=== PATIENT | male | born 1980 | race Caucasian/White ===

== ENCOUNTER 2023-11-08 21:55 | Emergency (ER) | payer OTHER, SELFPAY ==
[2023-11-08] VITALS (18 sets, daily range): BP systolic 126–145; BP diastolic 77–96; PULSE 106–136; TEMP 37.1; O2SAT 96–98; BMI 25.0
--- NOTE | 2023-11-08 22:13 | XR_ITS ---
[address] [address] Patient Name: ELIZABETH PERRY MRN: [id number] date: 1980 Sex: M Assigned Patient Location: ER Current Patient Location: ER Accession/Order Number: [id number] Exam Date: 11/08/2023 22:39 Report Date: 11/08/2023 22:54 At the request of: MARI MARKER Procedure: XR chest 1V EXAM: XR chest 1V HISTORY: CP COMPARISON: None FINDINGS/IMPRESSION: 1. Patchy consolidation of the right lung base, consistent with inflammation/infection. 2. No pneumothorax. No pleural effusion. 3. Heart size and mediastinal contours are normal. 4. No acute osseous abnormality. 5. Upper abdominal bowel gas pattern is nonspecific. Electronically authenticated by: ZUHAIR BENÍTEZ Date: 11/08/2023 22:54
[2023-11-08] MEDS: 0.9 % SODIUM CHLORIDE 1,000 ML 1000 ML IV (22:46)
[2023-11-08] MEDS: KETOROLAC TROMETHAMINE 30 MG/ML VIAL IVP (22:46)
[2023-11-08 22:47] LABS: Basophils Absolute Auto 0.1 10^3/uL (0.0-0.1); Basophils Percent Auto 0.4 % (0.2-2.0); Eosinophils Absolute Auto 0.3 10^3/uL (0.0-0.7); Eosinophils Percent Auto 1.9 % (0.9-7.0); Hematocrit 40.3 % (42.0-54.0); Hemoglobin 13.6 g/dL (14.0-18.0); Immature Granulocytes Abs Auto 0.05 10^3/uL (0.00-0.03); Immature Granulocytes Pct Auto 0.3 % (0.0-0.5); Lymphocytes Absolute Auto 4.5 10^3/uL (1.2-3.8); Lymphocytes Percent Auto 27.6 % (20.5-60.0); Mean Corpuscular HGB Conc 33.7 g/dL (29.9-35.2); Mean Corpuscular Hemoglobin 27.6 pg (25.9-34.0); Mean Corpuscular Volume 81.9 fL (80.0-94.0); Mean Platelet Volume 10.8 fL (9.5-13.5); Monocytes Absolute Auto 1.1 10^3/uL (0.3-0.8); Monocytes Percent Auto 6.5 % (1.7-12.0); Neutrophils Absolute Auto 10.3 10^3/uL (1.4-6.5); Neutrophils Percent Auto 63.3 % (43.0-75.0); Platelet Count 237 10^3/uL (150-450); Red Blood Count 4.92 10^6/uL (4.70-6.10); White Blood Count 16.2 10^3/uL (4.0-11.0)
--- NOTE | 2023-11-08 22:51 | ED.CHESTPAI1 ---
HPI - Chest Pain General Chief Complaint: Chest Pain Stated Complaint: CHEST PAIN Time Seen by Provider: 11/08/23 22:00 Source: patient and EMR Mode of arrival: walk-in Limitations: no limitations History of Present Illness HPI narrative: This 43-year-old male with a history of substance abuse who is currently at [facility] and has been there for the past 2 days is brought to the emergency department from [facility] for evaluation of chest pain/anxiety, questionable seizure. 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 Prior to that he was using other medications and has overdosed multiple times. He states that despite being clean for almost 1 year on October 18 he relapsed on meth and was court ordered to go to [facility]. He has been there for the past 2 days. He denies that he has used any substances since then and earlier today started having palpitations and feeling that his heart was beating fast and he became extremely anxious and thinks he may have passed out. The staff at [facility] thought he could have had a seizure as he was may be jerking at the time of passing out. Additional history was obtained from the [facility] nursing staff. The patient came to the desk earlier tonight stating that he was having increased anxiety. He was then given hydroxyzine and BuSpar. He complained that that did not work for his anxiety and was given additional dose of hydroxyzine at which time he had seizure-like activity and was unresponsive with shaking for approximately 3 minutes. There was then talk amongst themselves about giving him Narcan when he stopped his seizure activity. He did not bite his tongue nor was he incontinent of urine. Related Data Home Medications ?Medication ?Instructions ?Recorded ?Confirmed buprenorphine 4 mg-naloxone 1 mg 1 film sublingual Q24H 11/08/23 11/08/23 sublingual film buspirone 7.5 mg tablet 7.5 mg PO BID 11/08/23 11/08/23 diphenhydramine HCl 25 mg tablet 25 mg PO Q8H 11/08/23 11/08/23 (Banophen) Allergies Allergy/AdvReac Type Severity Reaction Status Date / Time Penicillins Allergy Mild Rash Verified 11/08/23 22:01 Review of Systems ROS Status of ROS 10 or more systems reviewed and unremarkable except as noted in history and below Exam Narrative Exam Narrative: Vital signs and Nursing Notes reviewed: Patient is afebrile, tachycardic with pulse of 117bpm, and blood pressure is elevated 145/86, he is not hypoxic with pulse ox of 98% on room air General: Awake, alert, oriented, anxious, no respiratory distress HEENT: Normocephalic atraumatic, mucous membranes are moist and pink, eyes are clear, normal conjunctiva, vision is grossly intact, posterior pharynx is normal in appearance, dentition is generally poor with multiple decayed and decaying teeth. Neck: Supple, no meningeal signs, no anterior or posterior cervical lymphadenopathy Chest: Lungs are clear to auscultation with good air entry, there is no wheezing rhonchi or rales appreciated no accessory muscle use, patient is speaking in complete sentences-no chest wall tenderness to palpation CVS: Regular rate and rhythm S1-S2, tachycardia at 115 on exam, no murmurs rubs or gallops, pulses are brisk and equal bilaterally ABD: Soft, nondistended, nontender, no rebound guarding or rigidity, bowel sounds are normal, no pulsatile masses appreciated Extremities: Moving all extremities, no lower extremity tenderness or swelling noted, negative Homans' sign, pulses are brisk and equal bilaterally Skin: Normal in appearance without rash,pallor, petechiae or purpura Neuro: No focal deficits, speech is clear, he is moving all extremities, upper and lower extremity strength and sensation is intact Psych: anxious Constitutional Vital Signs, click to edit/add: Last Vital Signs Temp 98.8 F 11/08/23 21:56 Pulse 116 H 11/08/23 23:10 Resp 15 11/08/23 23:29 BP 145/86 H 11/08/23 23:00 Pulse Ox 96 11/08/23 23:21 O2 Del Method Room Air 11/08/23 21:56 Course Vital Signs Vital signs: Vital Signs Temperature 98.8 F 11/08/23 21:56 Pulse Rate 136 H 11/08/23 21:56 Respiratory Rate 20 11/08/23 21:56 Blood Pressure 126/96 H 11/08/23 21:56 Pulse Oximetry 97 11/08/23 21:56 Oxygen Delivery Method Room Air 11/08/23 21:56 Temperature 98.8 F 11/08/23 21:56 Pulse Rate 116 H 11/08/23 23:10 Respiratory Rate 15 11/08/23 23:29 Blood Pressure 145/86 H 11/08/23 23:00 Pulse Oximetry 96 11/08/23 23:21 Oxygen Delivery Method Room Air 11/08/23 21:56 MDM - Chest Pain MDM Narrative Medical decision making narrative: This 43-year-old male with a history of substance abuse and cigarette smoking presents for evaluation of anxiety and chest pain. The patient was transferred from the [facility] recovery unit for evaluation of anxiety, chest pain and questionable syncope versus seizure. According to the staff at [facility] he came to the desk twice asking for something for anxiety and was medicated with hydroxyzine and BuSpar. He then complained of chest pain and either passed out or had a seizure. He does not have a history of seizures. He states his last use of methamphetamine was October 18. Upon arrival he is awake and alert with no postictal symptoms. EKG done upon arrival was sinus tachycardia 125 bpm with a normal axis and no acute changes. He was medicated with IV fluids and Toradol for his chest pain. His tachycardia started to resolve but he remained tachycardic and was medicated with 1 mg of IV Ativan. Routine cardiac labs are ordered. His white count is elevated at 16.2. There are no signs of infection. He has a normal hemoglobin. Electrolytes are normal. Alcohol is less than 3. Drug tox is positive for Suboxone and marijuana. Troponin and D-dimer are both normal. Chest x-ray was reviewed by radiology with concerns for a possible infiltrate. I reviewed the chest x-ray myself and do not think this is consistent with a pneumonia. The patient has not had a fever or cough. On reevaluation he is feeling better, resting comfortably. Vital signs are improved. The time of this dictation is blood pressure is 131/77, pulse ox is 96% on room air and pulse is 105. He states that the Ativan is starting to kick in. 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 He feels comfortable being released at this time. Lab Data Labs: Lab Results 11/08/23 11/08/23 Range/Units 22:37 23:20 WBC 16.2 H (4.0-11.0) 10^3/uL RBC 4.92 (4.70-6.10) 10^6/uL Hgb 13.6 L (14.0-18.0) g/dL Hct 40.3 L (42.0-54.0) % MCV 81.9 (80.0-94.0) fL MCH 27.6 (25.9-34.0) pg MCHC 33.7 (29.9-35.2) g/dL RDW 13.0 (11.0-15.0) % Plt Count 237 (150-450) 10^3/uL MPV 10.8 (9.5-13.5) fL Neut % (Auto) 63.3 (43.0-75.0) % Lymph % (Auto) 27.6 (20.5-60.0) % Sibley % (Auto) 6.5 (1.7-12.0) % Eos % (Auto) 1.9 (0.9-7.0) % Baso % (Auto) 0.4 (0.2-2.0) % Neut # (Auto) 10.3 H (1.4-6.5) 10^3/uL Lymph # (Auto) 4.5 H (1.2-3.8) 10^3/uL S[place]y # (Auto) 1.1 H (0.3-0.8) 10^3/uL Eos # (Auto) 0.3 (0.0-0.7) 10^3/uL Baso # (Auto) 0.1 (0.0-0.1) 10^3/uL Abs Immat Gran (auto) 0.05 H (0.00-0.03) 10^3/uL Imm/Tot Granulo (auto) 0.3 (0.0-0.5) % D-Dimer <0.19 (<=0.59) mg/L FEU Sodium 139 (136-145) mmol/L Potassium 4.1 (3.5-5.1) mmol/L Chloride 106 (98-107) mmol/L Carbon Dioxide 26.3 (21.0-32.0) mmol/L Anion Gap 10.8 BUN 15.0 (7.0-18.0) mg/dL Creatinine 1.11 (0.70-1.30) mg/dL Est GFR ( Amer) >60 (>=60) Est GFR (Non-Af Amer) >60 (>=60) BUN/Creatinine Ratio 13.5 Glucose 107 H (74-106) mg/dL Calcium 8.4 L (8.5-10.1) mg/dL Total Bilirubin 0.2 (0.2-1.0) mg/dL AST 7 L (15-37) U/L ALT 27 (16-63) U/L Alkaline Phosphatase 69 (46-116) U/L Troponin I High Sens 10.4 (4.0-76.1) pg/mL Total Protein 6.8 (6.4-8.2) g/dL Albumin 3.7 (3.4-5.0) g/dL Globulin 3.1 g/dL Albumin/Globulin Ratio 1.2 Urine Opiates Screen Negative (NEGATIVE) Ur Buprenorphine Scrn Positive A (NEGATIVE) Ur Oxycodone Screen Negative (NEGATIVE) Urine Methadone Screen Negative (NEGATIVE) Ur Barbiturates Screen Negative (NEGATIVE) U Tricyclic Antidepress Negative (NEGATIVE) Ur Phencyclidine Scrn Negative (NEGATIVE) Ur Amphetamines Screen Negative (NEGATIVE) U Methamphetamines Scrn Negative (NEGATIVE) U Benzodiazepines Scrn Negative (NEGATIVE) Urine Cocaine Screen Negative (NEGATIVE) U Cannabinoids Screen Positive A (NEGATIVE) Ethanol Quant <3 mg/dL ECG Data Attestation: I personally reviewed and interpreted this ECG as follows: (Sinus tachycardia at 125 bpm, normal axis, no acute ST segment elevation or T wave inversion) Heart Score History: Slightly/Non-Suspicious ECG: Normal Age: <45 years Risk Factors: 1 or 2 Risk Factors Troponin: <Normal Limit Total Heart Score Recommendations & Risks:: 1 Discharge Plan Discharge Stand Alone Forms: Portal Instructions Chief Complaint: Chest Pain Clinical Impression: Atypical chest pain, Anxiety, Panic attack Patient Disposition: Home, Self-Care Time of Disposition Decision: 00:01 Condition: Good Prescriptions / Home Meds: No Action buprenorphine-naloxone 4-1 mg film 1 film sublingual Q24H buspirone 7.5 mg tablet 7.5 mg PO BID diphenhydramine HCl [Banophen] 25 mg tablet 25 mg PO Q8H Print Language: Sami Instructions: Panic Disorder (ED), Noncardiac Chest Pain (ED), Anxiety (ED), Panic Attack (ED) Referrals: Physician,Non-Staff, MD [Primary Care Provider] - 1 week
[2023-11-08 23:02] LABS: Alanine Aminotransferase 27 U/L (16-63); Albumin Globulin Ratio 1.2; Albumin Level 3.7 g/dL (3.4-5.0); Alkaline Phosphatase 69 U/L (46-116); Anion Gap 10.8; Aspartate Amino Transferase 7 U/L (15-37); BUN Creatinine Ratio 13.5; Bilirubin Total 0.2 mg/dL (0.2-1.0); Calcium 8.4 mg/dL (8.5-10.1); Carbon Dioxide 26.3 mmol/L (21.0-32.0); Chloride 106 mmol/L (98-107); D Dimer <0.19 mg/L FEU (<=0.59); Estimated GFR (African America >60 (>=60); Estimated GFR (Non-African Ame >60 (>=60); Globulin 3.1 g/dL; Glucose 107 mg/dL (74-106); Potassium 4.1 mmol/L (3.5-5.1); Sodium 139 mmol/L (136-145); Total Protein 6.8 g/dL (6.4-8.2)
[2023-11-08 23:05] LABS: Troponin I High Sensitivity 10.4 pg/mL (4.0-76.1)
[2023-11-08 23:16] LABS: Ethanol <3 mg/dL
[2023-11-08] MEDS: LORAZEPAM 2 MG/ML VIAL 1 MG IV (23:22)
[2023-11-08 23:48] LABS: Amphetamine Screen Urine NEGATIVE (NEGATIVE); Barbiturates Screen Urine NEGATIVE (NEGATIVE); Benzodiazepines Screen Urine NEGATIVE (NEGATIVE); Buprenorphine Screen Urine POSITIVE (NEGATIVE); Cannabinoid Screen Urine POSITIVE (NEGATIVE); Cocaine Screen Urine NEGATIVE (NEGATIVE); Methadone Screen Urine NEGATIVE (NEGATIVE); Methamphetamines Screen Urine NEGATIVE (NEGATIVE); Opiate Screen Urine NEGATIVE (NEGATIVE); Oxycodone Screen Urine NEGATIVE (NEGATIVE); Phencyclidine Screen Urine NEGATIVE (NEGATIVE); Tricyclic Antidepressant Urine NEGATIVE (NEGATIVE)
[2023-11-09] VITALS: BP 133/87; PULSE 108; O2SAT 99
[2023-11-09 00:20] VITALS: BP 137/77; PULSE 100; O2SAT 99
--- NOTE | 2023-11-09 00:46 | ECG_ITS ---
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
== END 2023-11-09 00:20 | disposition home or self-care (01) ==
PROVIDERS: Emergency Provider Emergency Medicine
DX: R07.89 Other chest pain (principal); F41.9 Anxiety disorder, unspecified; F41.0 Panic disorder [episodic paroxysmal anxiety]; F17.210 Nicotine dependence, cigarettes, uncomplicated
CPT/HCPCS: 36415; 71045; 80053; 80307; 80320; 84484; 85025; 85378; 93005; 96374; 96375; 99285; J1885; J2060

== ENCOUNTER 2025-03-25 11:24 | Emergency (ER) | payer OTHER, SELFPAY ==
--- OUTSIDE RECORDS SUMMARY | 2024-12-25 10:45 | XMS_ITS | Continuity of Care Document ---
Author Organization [facility] Address [address] [place] [address] Phone Care Team Providers Care Occupational Ther Name Role Phone Shadi LOVE, Andrei Unavailable Unavailable Advance Directives Directive Yes / No Effective Date File Name No Information Encounters Encounter Description Practice Location Reason(s) For Visit Diagnoses Date Provider Providers Copied on Encounter [facility], [address], [place], [id number], [place] tel:[phone] [facility] Other specified counseling Shadi Bullard. [address], [place], [id number], [place]. tel:[phone] Family History Family Member Type Diagnosis Age At Onset No Information Payers Payer name Insurance type Covered constitution party ID Authoriza tion(s) No Information Social History [...]
[2025-03-25 11:35] VITALS: BP 125/71; PULSE 76; TEMP 36.7; O2SAT 100; BMI 24.1
--- NOTE | 2025-03-25 11:35 | ECG_ITS ---
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 Measurements Intervals [place] Rate: 67 P: 80 W[place]: 130 QRS: 78 QRSD: 84 T: 60 QT: 406 QTc: 421 Interpretive Statements 1100 Sinus rhythm 9110 normal ECG Compared to ECG 11/08/2023 22:05:33 Sinus tachycardia no longer present Electronically Signed On 03-25-2025 18:05:26 EDT by AXLE SWANN M.D.
--- OUTSIDE RECORDS SUMMARY | 2025-03-25 11:35 | XMS_ITS | Clinical Summary ---
Author Organization [facility] Address [address] [place] [address] Care Team Providers Care Shop Assistant Name Role Phone Unavailable Primary Care Provider Unavailabl e Source Comments PLEASE NOTE, if this patient is a minor, it may be UNLAWFUL to discuss sensitive information that is contained in these records (such as FAMILY PLANNING, MENTAL HEALTH or SUBSTANCE ABUSE) with the minor patient's parent or other person without the patient's specific authorization.[facility] Allergies Active AllergyReactionsCriticalityNoted IwdsAmhbgsztMmhnemrisft99/24/2025 Medications MedicationSigDispense QuantityRefillsLast FilledStart DateEnd DateStatus methadone HCl (METHADONE ORAL) Take by mouth.Active glecaprevir-pibrentasvir (MAVYRET) 100-40 mg tab Indications:Chronic hepatitis C without hepatic comaTake 3 Tablets by mouth daily for 56 days 3 tablets orally daily x 8 weeks Take all 3 tablets at same time, after dinner with glass of water. Call for blood redraw 4 wks after last pill. [phone]. 84 Tablet 5Active Active Problems No known active problems Encounters DateTypeDepartmentCare BcwzXprktckaoiw76/09/2025Interim Notes [facility] [address] [phone] Corie Alves 02/28/2025Results Follow-Up [facility] [address] [place] [address] Augusta Elizabeth CRNP 02/27/2025Interim Notes [facility] Department [address] [place] [phone] Brady Ariza 02/26/2025Telemedicine Visit [facility] [address] [place] [phone] Augusta Elizabeth CRNP 02/20/2025 9:15 PM EDTOffice Visit [facility] [address] [place] [address] Augusta Elizabeth CRNP from Last 3 Months Social History Tobacco UseTypesPacks/DayYears UsedDateSmoking Tobacco: Never AssessedSex and Gender InformationValueDate RecordedSex Assigned at OeyqkZldg53/24/2025 6:08 PM PDTLegal WfrGkkg78/04/2013 10:55 PM PSTGender OubuyeaeNtzw25/24/2025 6:08 PM PDT Sexual QflmiaxqcdvYacwxigk13/24/2025 6:08 PM PDT Last Filed Vital Signs Vital SignReadingTime TakenCommentsBlood Djaxclwn077/77002/20/2025 9:13 PM EDT Mkoja596102/20/2025 9:13 PM DDYHfesiwjdgvl55.4 ??C (97.6 ??F)02/20/2025 9:13 PM EDTRespiratory Uqnx487302/20/2025 9:13 PM EDTOxygen Btmksttcfc72%02/20/2025 9:13 PM EDTInhaled Oxygen Concentration--Asmgog08.5 kg (140 lb)02/20/2025 9:13 PM EDT Lrogga156.1 cm (5' 5 )02/20/2025 9:13 PM EDTBody Mass Index23.309 9:13 PM EDT Plan of Treatment Health MaintenanceDue DateLast DoneCommentsAnxiety Wpfjegpsw1981Diabetes Enmohnhgm1981Lipid Farfprort1981Tobacco Zecphjxzw1981Imm- Pneumococcal (1 of 2 - PCV)2000Imm-HPV (1 - 3-dose SCDM series)2008 Alcohol and Drug Ezfrcg3605/30/2024Depression Annual Physyl9905/30/20244121Vox-IRQKM-78 ( - season)2025Imm-Influenza (#1)2025Hypertension Screening (#1)02/20/2026STI Blqkowveyp39Imm-DTaP/Tdap/Td (2 - Td or Tdap)9007/16/2018HIV MwgnlmakvDdloelqmr62/25/2025Imm-Hepatitis B Discontinued Procedures Procedure NamePriorityDate/TimeAssociated DiagnosisCommentsMEDICATIONS SCANNED DZSZRYPYXdscesj96/01/2025 4:34 PM EDTMEDICATIONS SCANNED DOCUMENTRoutine 02/27/2025 12:37 PM EDTNFCT AGENT GENOTYPE LULU NUCLEIC ACD HEP C VIRUSRoutine 02/21/2025 11:47 AM EDT BLOOD COUNT COMPLETE LCCKJZNBXHwblkyd38/25/2025 11:47 AM EDT Chronic hepatitis C without hepatic coma (CMS & HHS-HCC) Exposure to sexually transmitted disease (STD) Encounter for screening for other viral diseases Screening examination for venereal disease HIV 1/2 AG & AB W/RFLX (4TH GEN)Jviaojt7002/21/2025 11:47 AM EDT Chronic hepatitis C without hepatic coma (CMS & HHS-HCC) Exposure to sexually transmitted disease (STD) Encounter for screening for other viral diseases Screening examination for venereal disease HEP C RNA QT, RT PCR W/RFLX ANKITA WUHFCvnczut42/25/2025 11:47 AM EDT Chronic hepatitis C without hepatic coma (CMS & HHS-HCC) Exposure to sexually transmitted disease (STD) Encounter for screening for other viral diseases Screening examination for venereal disease HEPATIC FUNCTION SLZWQOnzhgof66/25/2025 11:47 AM EDT Chronic hepatitis C without hepatic coma (CMS & HHS-HCC) Exposure to sexually transmitted disease (STD) Encounter for screening for other viral diseases Screening examination for venereal disease PROTHROMBIN QLUVCrnwisf23/25/2025 11:47 AM EDT Chronic hepatitis C without hepatic coma (CMS & HHS-HCC) Exposure to sexually transmitted disease (STD) Encounter for screening for other viral diseases Screening examination for venereal disease HEPATITIS PANEL, GENERAL W/RFLX (QPT ONLY)Vjmvodz6402/21/2025 11:47 AM EDT Chronic hepatitis C without hepatic coma (CMS & HHS-HCC) Exposure to sexually transmitted disease (STD) Encounter for screening for other viral diseases Screening examination for venereal disease BUN/CREATININE CFWKQKqvtkez13/25/2025 11:47 AM EDT Chronic hepatitis C without hepatic coma (CMS & HHS-HCC) Exposure to sexually transmitted disease (STD) Encounter for screening for other viral diseases Screening examination for venereal disease LIVER FIBROSIS, FIBROTEST-ACTITEST PANEL??Jyfewnw1602/21/2025 11:47 AM EDT Chronic hepatitis C without hepatic coma Exposure to sexually transmitted disease (STD) Encounter for screening for other viral diseases Screening examination for venereal disease SYPHILIS ANTIBODY CASCADING OSEOPBFmmshlh21/25/2025 11:47 AM EDT Chronic hepatitis C without hepatic coma ([facility] & HHS-HCC) Exposure to sexually transmitted disease (STD) Encounter for screening for other viral diseases Screening examination for venereal disease HEPATITIS??B VIRUS, DNA, QUANTITATIVE PCR W/RFLX HBV UYYZKFJUCobckll69/25/2025 11:47 AM EDT Chronic hepatitis C without hepatic coma Exposure to sexually transmitted disease (STD) Encounter for screening for other viral diseases Screening examination for venereal disease History of hepatitis B HEPATITIS BE DBKDKArthjsj38/25/2025 11:47 AM EDT Chronic hepatitis C without hepatic coma Exposure to sexually transmitted disease (STD) Encounter for screening for other viral diseases Screening examination for venereal disease History of hepatitis B HEPATITIS D VIRUS (HDV) IGM ANTIBODY, DURUtcbvkd02/25/2025 11:47 AM EDT Chronic hepatitis C without hepatic coma Exposure to sexually transmitted disease (STD) Encounter for screening for other viral diseases Screening examination for venereal disease History of hepatitis B LAB SCANNED JUQTGPEP96/25/2025 3:00 AM EDTLAB SCANNED ETBNGYTK34/25/2025 3:00 AM EDTLAB SCANNED YKBRWCXH31/25/2025 3:00 AM EDTLAB SCANNED KNLHTADL34/25/2025 3:00 AM EDTLAB SCANNED JHZMCCWS38/25/2025 3:00 AM EDTLAB SCANNED JAPLIEXU97/25/2025 3:00 AM EDTLAB SCANNED HIURGVCN13/25/2025 3:00 AM EDTLAB SCANNED DOCUMENT 02/21/2025 3:00 AM EDTLAB SCANNED DRQDVZOE33/25/2025 3:00 AM EDTLAB SCANNED MBGWYJUT88/25/2025 3:00 AM EDTLAB SCANNED HDXGHGPA03/25/2025 3:00 AM EDTLAB SCANNED CBDHTKUD55/25/2025 3:00 AM EDTLAB SCANNED PPFXFVAS14/25/2025 3:00 AM EDT LAB SCANNED IQJNINXS51/25/2025 3:00 AM EDTfrom Last 3 Months Results * MEDICATIONS SCANNED DOCUMENT (02/27/2025 4:34 PM EDT) Only the most recent of2 resultswithin the time period is included. Narrative Authorizing ProviderResult TypeResult StatusProvider OchinSCAN MEDS OTHER ORDERS Final Result * BUN/CREATININE RATIO Routine (02/21/2025 11:47 AM EDT)ComponentValueRef Range Test MethodAnalysis TimePerformed AtPathologist SignatureUREA KRUHDFWW973 - 25 mg/dL02/22/2025 9:22 PM EDTQUEST Stabilitech-UNIVERSALCREATININE0.910.60 - 1.29 mg/dL02/22/2025 9:22 PM EDTHellHouse Media-SUOVRAUKZDIQAZ583> OR = 60 mL/min/1.00g38602/22/2025 9:22 PM EDTHellHouse MediaLECONTE MEDICAL CENTERBUN/CREATININE RATIOSEE NOTE: (calc)02/22/2025 9:22 PM EDTHellHouse MediaLECONTE MEDICAL CENTER Specimen (Source)Anatomical Location / LateralityCollection Method / Volume Collection TimeReceived TimeBloodBlood / Msfjdqw6002/21/2025 11:47 AM EDT 02/22/2025 3:11 PM EDT Narrative [facility] - 02/22/2025 9:22 PM EDT Not Reported: BUN and Creatinine are within ?? reference range. . Authorizing ProviderResult TypeResult StatusAmber Glenn CRNPLAB - BLOOD DRAW Final ResultPerforming OrganizationAddressCity/State/ZIP CodePhone [place] [address], [facility]-[address] [address] * (ABNORMAL) HEPATITIS PANEL, GENERAL W/RFLX (QPT ONLY) Routine (02/21/2025 11:47 AM EDT)ComponentValueRef RangeTest MethodAnalysis TimePerformed At [facility] S AB, QLREACTIVE(A)NON-RQBJFOVA19/27/2025 10:10 AM EDT [facility] MediaBAYQSCOSEZC-ENJPFWAOMYFSPQCBQP-MEKUTZRZEPH-FLKDIXOS96/27/2025 10:59 AM EDTQUEST StabilitechLECONTE MEDICAL CENTERHB CORE AB, TOTALREACTIVE(A)NON-REACTIVE 02/23/2025 10:59 AM EDTQUEST StabilitechLECONTE MEDICAL CENTERHEPATITIS C ANTIBODY REACTIVE(A)NON-LHXMQQXJ47/27/2025 10:59 AM EDTHellHouse MediaLECONTE MEDICAL CENTER HEPATITIS A AB, TOTALREACTIVE(A)NON-OEADXJBU78/27/2025 11:44 AM Content RamenLECONTE MEDICAL CENTERSpecimen (Source)Anatomical Location / Laterality Collection Method / VolumeCollection TimeReceived TimeBloodBlood / Unknown 02/21/2025 11:47 AM EDT02/22/2025 3:11 PM EDT Narrative [facility] - 02/23/2025 11:44 AM EDT . Based on this result, the sample will be tested for HCV RNA by a Nucleic Acid Amplification Test (NAAT) to determine if the patient has a current active infection. . . For additional information, please refer to http://education.Cozy Cloud.Cogenics/faq/PRF675 (This link is being provided for informational/ educational purposes only.) . . For additional information, please refer to http://[employer].Cogenics/faq/HLG309 (This link is being provided for informational/ educational purposes only.) . Authorizing ProviderResult TypeResult StatusAmber Glenn HANKINSLAB - BLOOD DRAW Edited Result - FinalPerforming OrganizationAddressCity/State/ZIP CodePhone Number [facility] [address], [facility] [address] * HEPATITIS??B VIRUS, DNA, QUANTITATIVE PCR W/RFLX HBV GENOTYPE Routine (02/21/2025 11:47 AM EDT)ComponentValueRef RangeTest MethodAnalysis Time Performed AtPathologist SignatureHBV DNANOT DETECTEDIU/mL02/27/2025 2:48 AM EDTQUEST DIAG[facility]ICS/DENISSE SJCHBV DNANOT DETECTEDLog IU/mL02/27/2025 2:48 AM EDTQUEST DIAGNOSTICS/DENISSE SJCSpecimen (Source)Anatomical Location / LateralityCollection Method / VolumeCollection TimeReceived TimeBloodBlood / Pnvypey9302/21/2025 11:47 AM EDT02/22/2025 3:10 PM EDT Narrative [facility] [place] - 02/27/2025 2:57 AM EDT REFERENCE RANGE: NOT DETECTED IU/mL NOT DETECTED LOG IU/mL Authorizing ProviderResult TypeResult StatusAugusta BROWERNPLAB - BLOOD DRAW Final ResultPerforming OrganizationAddressCity/State/ZIP CodePhone Number [facility] [place] [address] [place] [address] [facility] [address] [place] [address] * SYPHILIS ANTIBODY CASCADING REFLEX Routine (02/21/2025 11:47 AM EDT)Component ValueRef RangeTest MethodAnalysis TimePerformed AtPathologist SignatureT. PALLIDUM AB, GMQQDRSKNKSSFZIURTP14/29/2025 4:20 PM EDTQUEST DIAGNOSTICSJamestown [facility] (Source)Anatomical Location / Laterality Collection Method / VolumeCollection TimeReceived TimeBloodBlood / Unknown 02/21/2025 11:47 AM EDT02/22/2025 3:11 PM EDT Narrative [facility] - 02/25/2025 4:27 PM EDT . No antibodies to T. pallidum (the agent causing syphilis) were detected in the specimen. This result, however, does not exclude very recent T. pallidum infection; testing of a second specimen, collected 2-4 weeks after this specimen, is recommended if the index of suspicion for recent infection is high. . Authorizing ProviderResult TypeResult StatusAmbvanesa Elizabeth CRNPLAB - BLOOD DRAW Final ResultPerforming OrganizationAddressCity/State/ZIP CodePhone Number [facility], [address] [address], [facility]-[address] [address] * (ABNORMAL) LIVER FIBROSIS, FIBROTEST-ACTITEST PANEL?? Routine (02/21/2025 11:47 AM EDT)ComponentValueRef RangeTest MethodAnalysis TimePerformed At Pathologist SignatureFIBROSIS SCORE0.231 4:47 PM EDTQUEST DIAGNO[facility]ICS/[place] SJCFIBROSIS STAGEF0-F103/01/2025 4:47 PM EDT[facility]/[place] SJCFIBROSIS INTERPRETATIONSEE NOTE03/01/2025 4:47 PM EDT [facility]/[place] SJCNECROINFLAMMATION ACT SCORE0.101 4:47 PM EDTQUEST [facility]AGNO[facility]/[place] SJCNECROINFLAMMATION ACT JVMSIU113/03/2025 4:47 PM EDTQUEST [facility]/[place] SJCNECROINFLAMMATION INTERPSEE NOTE03/01/2025 4:47 PM EDTQUEST [facility]AG[facility]/[place] PGEIBLQJ-1-DIYOSYPDBYGUN171102 - 279 mg/dL03/01/2025 4:47 PM EDTQUEST [facility]/[place] QUWMNXVTGCEVOD9823 - 212 mg/dL03/01/2025 4:47 PM EDT[facility]/[place] SJCAPOLIPOPROTEIN A1190 (H)94 - 176 mg/dL03/01/2025 4:47 PM EDTQUEST [facility]/[place] SJCTOTAL BILIRUBIN0.50.2 - 1.2 mg/dL03/01/2025 4:47 PM EDTQUEST [facility]/[place] SJC DGU758 - 95 U/L1 4:47 PM EDT[facility]/[place] LOTDOZ062 - 46 U/L1 4:47 PM EDT[facility]/[place] SJCREFERENCE [id number] 03/01/2025 4:47 PM EDTQUEST [facility]AG[facility]/[place] SJCFOOTNOTESEE NOTE03/01/2025 4:47 PM EDTQUEST [facility]AGNO[facility]/[place] SJCSpecimen (Source)Anatomical Location / LateralityCollection Method / VolumeCollection TimeReceived TimeBloodBlood / Dvdgilr2102/21/2025 11:47 AM EDT02/22/2025 12:06 PM EDT Narrative [facility] [place] - 03/01/2025 4:49 PM EDT . no fibrosis . Fibro Test Score (f) ??Metavir Score f>=0 and f<=0.21 : F0 (no fibrosis) f>0.21 and f<=0.27 : F0-F1 (no fibrosis) f>0.27 and f<=0.31 : F1 (minimal fibrosis) f>0.31 and f<=0.48 : F1-F2 (minimal fibrosis) f>0.48 and f<=0.58 : F2 (moderate fibrosis) f>0.58 and f<=0.72 : F3 (advanced fibrosis) f>0.72 and f<=0.74 : F3-F4 (advanced fibrosis) f>0.74 and f<=1.00 : F4 (severe fibrosis) . no activity . ActiTest Score (a) ?Metavir Score a>=0 and a<=0.17 : A0 (no activity) a>0.17 and a<=0.29 : A0-A1 (no activity) a>0.29 and a<=0.36 : A1 (minimal activity) a>0.36 and a<=0.52 : A1-A2 (minimal activity) a>0.52 and a<=0.60 : A2 (significant activity) a>0.60 and a<=0.62 : A2-A3 (significant activity) a>0.62 and a<=1.00 : A3 (severe activity) . The reliability of results is dependent on compliance with the preanalytical and analytical conditions recommended by [employer]. The tests have to be deferred for: acute hemolysis, acute hepatitis, acute inflammation, extra hepatic cholestasis. The advice of a specialist should be sought for interpretation in chronic hemolysis and Gilbert's syndrome. The test interpretation is not validated in liver transplant patients. Isolated extreme values of one of the components should lead to caution in interpreting the results. In case of discordance between a biopsy result and a test, it is recommended to seek the advice of a specialist. The causes of these discordances could be due to a flaw of the test or to a flaw in the biopsy: i.e. a liver biopsy has a 33% variability rate for one fibrosis stage. FibroTest is interpretable for chronic hepatitis B and C, alcoholic and non alcoholic steatosis. ActiTest is interpretable for chronic hepatitis B and C. . The performance characteristics have been determined by [facility]. It has not been cleared or approved by the U.S. Food and Drug Administration. Performance characteristics refer to the analytical performance of the test. . [facility], [employer], the associated logo, [employer] and all associated [employer] mcdaniel are the registered trademarks of [employer]. All third green party mcdaniel - (R) and (TM) - are the property of their respective owners. (C) 2660-1773 [employer]. All rights reserved. . Authorizing ProviderResult TypeResult StatusAmbvanesa Elizabeth Grupo ANPLAB - BLOOD DRAW Final ResultPerforming OrganizationAddressCity/State/ZIP CodePhone Number [facility] [place] [address] [place] [address] [facility] [address] [place] [address] * HIV 1/2 AG & AB W/RFLX (4TH GEN) Routine (02/21/2025 11:47 AM EDT)Component ValueRef RangeTest MethodAnalysis TimePerformed AtPathologist SignatureHIV Screen FinalHIV ZTWNKTJC50/27/2025 10:59 AM EDTHellHouse Media-UNIVERSALHIV AG/AB, 4TH MCIBGP-JZYNSXAETWQ-MTMBYOKZ79/27/2025 10:59 AM Content RamenLECONTE MEDICAL CENTERSpecimen (Source)Anatomical Location / Laterality Collection Method / VolumeCollection TimeReceived TimeBloodBlood / Unknown 02/21/2025 11:47 AM EDT02/22/2025 3:11 PM EDT Narrative [facility] - 02/23/2025 11:00 AM EDT HIV-1 antigen and HIV-1/HIV-2 antibodies were not detected. There is no laboratory evidence of HIV infection. Authorizing ProviderResult TypeResult StatusAmbvanesa CrooksSheridan CRNPLAB - BLOOD DRAW Final ResultPerforming OrganizationAddressCity/State/ZIP CodePhone Number [facility] MediaBR[place] [phone], [facility] [address] * HEPATITIS BE PANEL Routine (02/21/2025 11:47 AM EDT)ComponentValueRef Range Test MethodAnalysis TimePerformed AtPathologist SignatureHEPATITIS BE ANTIBODY Srzqoyxyebg89/29/2025 10:16 AM EDTQUEST [facility]AG[facility]/[place] MAGALIYHEPATITIS BE MXVIKBDVbbxcxngttx12/14/2025 8:03 AM EDT[facility]/[place] Specimen (Source)Anatomical Location / LateralityCollection Method / Volume Collection TimeReceived TimeBloodBlood / Mkktjtg5302/21/2025 11:47 AM EDT 02/22/2025 3:11 PM EDT Narrative [facility] - 03/12/2025 8:05 AM EDT . . Reference range: ??Nonreactive . . For additional information, please refer to https://[employer].Centice/faq/XIB926 . (This link is being provided for informational/ educational purposes only.) . . . Reference range: ??Nonreactive . . For additional information, please refer to https://[employer].Centice/faq/AST199 . (This link is being provided for informational/ educational purposes only.) . Authorizing ProviderResult TypeResult StatusAmber Glenn CRNPLAB - BLOOD DRAW Edited Result - FinalPerforming OrganizationAddressCity/State/[place] [id number] [place], [place] , [facility]/CorkCRM [facility]ITALChipS[facility] [address] [place], [place] * HEPATITIS D VIRUS (HDV) IGM ANTIBODY, EIA Routine (02/21/2025 11:47 AM EDT) ComponentValueRef RangeTest MethodAnalysis TimePerformed AtPathologist SignatureHEPATITIS D VIRUS (HDV) IGM ANTIBODY, WSDZXVJCPND94/01/2025 9:33 PM EDTQUEST DIAGNOSTICS/[place] SJCSpecimen (Source)Anatomical Location / LateralityCollection Method / VolumeCollection TimeReceived TimeBloodBlood / Onrmfky5102/21/2025 11:47 AM EDT02/22/2025 3:11 PM EDT Narrative [facility] [place] - 02/27/2025 9:34 PM EDT REFERENCE RANGE: NEGATIVE . HDV infection occurs only in association with HBV infection. Detection of HDV IgM suggests either recent/acute infection or chronic infection with IgM persistence. HDV RNA PCR testing can also be considered as an aid in the diagnosis and staging of infection. . This test was developed and its analytical performance characteristics have been determined by [employer]. It has not been cleared or approved by FDA. This assay has been validated pursuant to the CLIA regulations and is used for clinical purposes. . Authorizing ProviderResult TypeResult StatusAmb Glenn CRNPLAB - BLOOD DRAW Final ResultPerforming OrganizationAddressCity/State/ZIP CodePhone Number [facility] [place] [address] [place] [address] [facility] [address] [place] [address] * (ABNORMAL) HEP C RNA QT, RT PCR W/RFLX ANKITA LIPA Routine (02/21/2025 11:47 AM EDT)ComponentValueRef RangeTest MethodAnalysis TimePerformed AtPathologist SignatureHCV RNA, QN, PCR1,020,000(H)NOT DETECTED IU/mL02/24/2025 2:14 AM EDT [facility] MediaKimUNIVERSALHCV RNA, QN, PCR6.01(H)NOT DETECTED Log IU/mL 02/24/2025 2:14 AM EDTHellHouse MediaLECONTE MEDICAL CENTERSpecimen (Source)Anatomical Location / LateralityCollection Method / VolumeCollection TimeReceived Time BloodBlood / Exoffut3402/21/2025 11:47 AM EDT02/22/2025 3:09 PM EDT Sanket [facility] UNIVERSAL - 02/24/2025 2:17 AM EDT For additional information, please refer to http://education.Cozy Cloud.Cogenics/faq/CFG97d7 (This link is being provided for informational/ Educational purposes only.) Authorizing ProviderResult TypeResult StatusAmbDameron HospitalGlenn CRNPLAB - BLOOD DRAW Final ResultPerforming OrganizationAddressCity/State/ZIP CodePhone Number [facility], [address] [address], [facility] [address] * NFCT AGENT GENOTYPE LULU NUCLEIC ACD HEP C VIRUS Routine (02/21/2025 11:47 AM EDT)ComponentValueRef RangeTest MethodAnalysis TimePerformed AtPathologist SignatureHCV RNA GENOTYPE, OAUX2mVxb Pleljlsp43/02/2025 2:43 PM EDTHellHouse Media/CorkCRM [facility] MED[facility] CENTERpecimen (Source)Anatomical Location / Laterality Collection Method / VolumeCollection TimeReceived Time02/21/2025 11:47 AM EDT 02/26/2025 3:59 AM EDT Narrative [facility] [place] - 02/28/2025 2:44 PM EDT . The methods used in this test are RT-PCR and DNA Sequencing of the 5' UTR and core region of the HCV genome. . For additional information, please refer to http://education.G-volution/faq/HCVGenotyping . (This link is being provided for informational/ educational purposes only.) . This test was developed and its analytical performance characteristics have been determined by [employer]. It has not been cleared or approved by the FDA. The assay has been validated pursuant to the CLIA regulations and is used for clinical purposes. . Authorizing ProviderResult TypeResult StatusAmber Glenn CRNPLAB - BLOOD DRAW Final ResultPerforming OrganizationAddressCity/State/ZIP CodePhone Number [facility] [place] [address] [place], [place] , [facility]/CorkCRM [place] [address] [place], [place] * PROTHROMBIN TIME Routine (02/21/2025 11:47 AM EDT)ComponentValueRef RangeTest MethodAnalysis TimePerformed AtPathologist SignatureINR1. 5:24 PM EDTQUEST DIAGNOSTICSLECONTE MEDICAL CENTERPROTHROMBIN TIME10.69.0 - 11.5 sec02/22/2025 5:24 PM EDTQUEST DIAGNOSTICSLECONTE MEDICAL CENTERSpecimen (Source)Anatomical Location / LateralityCollection Method / VolumeCollection TimeReceived TimeBloodBlood / Dnaultd3902/21/2025 11:47 AM EDT09/ 3:11 PM EDT Narrative [facility] - 02/22/2025 5:25 PM EDT Reference Range 0.9-1.1 Moderate-intensity Warfarin Therapy 2.0-3.0 Higher-intensity Warfarin Therapy ?? 3.0-4.0 . For additional information, please refer to http://[employer].Centice/faq/WER320 (This link is being provided for informational/ educational purposes only.) Authorizing ProviderResult TypeResult StatusAmber Glenn BROWERNPLAB - BLOOD DRAW Final ResultPerforming OrganizationAddressCity/State/ZIP CodePhone Number [facility], [address] [address], [facility]NOSTICSTIFFANY [place] [address] * BLOOD COUNT COMPLETE AUTOMATED Routine (02/21/2025 11:47 AM EDT)ComponentValue Ref RangeTest MethodAnalysis TimePerformed AtPathologist SignatureWBC8.13.8 - 10.8 Thousand/uL02/22/2025 4:08 PM EDTQUEST DIAGNOSTICS-UNIVERSALRBC5.274.20 - 5.80 Million/uL02/22/2025 4:08 PM EDTQUEST DIAGNOSTICSLECONTE MEDICAL CENTERHEMOGLOBIN 15.213.2 - 17.1 g/dL02/22/2025 4:08 PM EDTQUEST DIAGNOSTICSLECONTE MEDICAL CENTER DCCVLJRQIA03.438.5 - 50.0 %02/22/2025 4:08 PM EDTQUEST DIAGNOSTICSLECONTE MEDICAL CENTER MCV88.080.0 - 100.0 fL02/22/2025 4:08 PM EDTQUEST DIAGNOSTICSLECONTE MEDICAL CENTERMCH 28.827.0 - 33.0 pg02/22/2025 4:08 PM EDTQUEST DIAGNOSTICSLECONTE MEDICAL CENTERNHOFLDPLUGDIPP17.8 32.0 - 36.0 g/dL02/22/2025 4:08 PM EDTQUEST DIAGNOSTICSLECONTE MEDICAL CENTERGJMDLUVJQIDPU26.511.0 - 15.0 %02/22/2025 4:08 PM EDTQUEST DIAGNOSTICS-UNIVERSALPLATELET YNYQL470610 - 400 Thousand/uL02/22/2025 4:08 PM EDTQUEST [facility]AGNO[facility]ICS-HVKDORCOWGARW29.47.5 - 12.5 fL02/22/2025 4:08 PM EDTQUEST DIAGNOSTICS-UNIVERSALSpecimen (Source) Anatomical Location / LateralityCollection Method / VolumeCollection Time Received TimeBloodBlood / Vihkcpj2502/21/2025 11:47 AM EDT02/22/2025 3:11 PM EDT Narrative [facility] - 02/22/2025 4:09 PM EDT For adults, a slight decrease in the calculated MCHC value (in the range of 30 to 32 g/dL) is most likely not clinically significant; however, it should be interpreted with caution in correlation with other red cell parameters and the patient's clinical condition. Authorizing ProviderResult TypeResult StatusAmber Glenn CRNPLAB - BLOOD DRAW Final ResultPerforming OrganizationAddressCity/State/ZIP CodePhone Number [facility] [address], [facility] [address] * HEPATIC FUNCTION PANEL Routine (02/21/2025 11:47 AM EDT)ComponentValueRef RangeTest MethodAnalysis TimePerformed AtPathologist SignaturePROTEIN, TOTAL 7.56.1 - 8.1 g/dL02/22/2025 9:22 PM EDTViximo DIAGNOSTICS-UNIVERSALALBUMIN4.6 3.6 - 5.1 g/dL02/22/2025 9:22 PM EDTViximo DIAGNOSTICS-UNIVERSALGLOBULIN, CALCULATED2.91.9 - 3.7 g/dL (calc)02/22/2025 9:22 PM EDTViximo DIAGNOSTICS-UNIVERSALA/G RATIO1.61.0 - 2.5 (calc)02/22/2025 9:22 PM EDTViximo DIAGNOSTICS-UNIVERSALBILIRUBIN, TOTAL0.50.2 - 1.2 mg/dL02/22/2025 9:22 PM EDT [facility]-UNIVERSALBILIRUBIN, DIRECT0.10.0 - 0.2 mg/dL02/22/2025 9:22 PM EDTQUEST DIAGNOSTICS-UNIVERSALBILIRUBIN, INDIRECT0.40.2 - 1.2 mg/dL (calc) 02/22/2025 9:22 PM EDTQUEST DIAGNOSTICS-UNIVERSALALKALINE KJZOPPMWTXC0792 - 130 U/L02/22/2025 9:22 PM EDTV[facility]imo [facility]-IEOIWZPIKLYVL8634 - 40 U/L 02/22/2025 9:22 PM EDTQUEST DIAGNOSTICS-UEDBEPUXZJKKR430 - 46 U/L02/22/2025 9:22 PM EDTQUEST DIAGNOSTICS-UNIVERSALSpecimen (Source)Anatomical Location / LateralityCollection Method / VolumeCollection TimeReceived TimeBloodBlood / Mimyupv7402/21/2025 11:47 AM EDT02/22/2025 3:11 PM EDT Narrative Authorizing ProviderResult TypeResult StatusAmbvanesa Elizabeth CRNPLAB - BLOOD DRAW Final ResultPerforming OrganizationAddressCity/State/ZIP CodePhone Number [facility], [address] [phone], [facility] [phone] * LAB SCANNED DOCUMENT (02/21/2025 3:00 AM EDT) Only the most recent of14 resultswithin the time period is included. Specimen (Source)Anatomical Location / LateralityCollection Method / Volume Collection TimeReceived Time02/21/2025 3:00 AM EDT Narrative Authorizing ProviderResult TypeResult StatusAmber Glenn CRNPSCAN LABFinal Result from Last 3 Months Insurance
--- OUTSIDE RECORDS SUMMARY | 2025-03-25 11:35 | XMS_ITS | Clinical Summary ---
[facility] Address [id number] 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 14 capsule 12/04/2020ctive Social History Tobacco UseTypesPacks/DayYears UsedDateSmoking Tobacco: Every DayCigarettes Smokeless Tobacco: NeverChildcareAnswerDate OcaiqcnxOtrwejeafUklidef81/12/2019 EmploymentAnswerDate QistxmszAdzwtwumetFdyrhoo03/12/2019Sex and Gender InformationValueDate RecordedSex Assigned at BirthNot on fileLegal SexMale 08/09/2015 11:33 PM ESTGender IdentityNot on fileSexual OrientationNot on file Last Filed Vital Signs Vital SignReadingTime TakenCommentsBlood Eerkbuqs065/8312/04/2020 9:23 PM EDT Aavib663412/04/2020 9:40 PM QKGAxifztjxtsz07.4 ??C (99.3 ??F)12/04/2020 8:55 PM EDTRespiratory Vxqo540012/04/2020 9:40 PM EDTOxygen Uuoftifunt75%12/04/2020 9:40 PM EDTInhaled Oxygen Concentration--Zteogz19 kg (130 lb)12/04/2020 8:55 PM EDT Pnsbmg362.6 cm (5' 4 )12/04/2020 8:55 PM EDTBody Mass Index22.31012/04/2020 8:55 PM EDT Plan of Treatment Not on file Medical Devices Not on file Insurance Care Teams Team MemberRelationshipSpecialtyStart DateEnd Date No P[place] [id number] [facility]
[2025-03-25 11:43] VITALS: PULSE 76
--- NOTE | 2025-03-25 11:45 | ED.GENADUL1 ---
HPI HPI - General Adult General Chief complaint: Chest Pain Stated complaint: CHEST PAIN SOB Time Seen by Provider: 03/25/25 11:39 Source: patient Mode of arrival: walk-in History of Present Illness HPI narrative: 43-year-old male presenting to the ER with cough as well as right ear pain and congestion for the last 1 week. He is a smoker 1 pack of cigarette daily and also have a history hepatitis C Patient denies any chest pain is only whenever he is coughing or taking a deep breath. No nausea no vomiting no diarrhea. The patient also has been complaining of runny nose as well as right ear pain for the last few days Related Data Home Medications ?Medication ?Instructions ?Recorded ?Confirmed glecaprevir 100 mg-pibrentasvir 40 tab PO TID 03/25/25 mg tablet (Mavyret) methadone 03/25/25 Previous Rx's ?Medication ?Instructions ?Recorded azithromycin 250 mg tablet See Rx Instructions PO .COMPLEX #6 03/25/25 (Zithromax Z-Jaquan) tabs guaifenesin 600 mg tablet, 600 mg PO BID PRN cough #14 tabs 03/25/25 extended release 12 hr (Mucinex) prednisone 20 mg tablet 40 mg (2 x 20 mg) PO DAILY 5 days 03/25/25 #10 tabs Allergies Allergy/AdvReac Type Severity Reaction Status Date / Time Penicillins Allergy Mild Rash Verified 03/25/25 11:32 Opioid HPI Opioid Management Most Recent Opioid Data: Last Pain Scale 5 Today, 11:35 Ur Phencyclidine Scrn, (NEGATIVE) Negative 11/08/23, 23:20 Review of Systems ROS Status of ROS 10 or more systems reviewed and unremarkable except as noted in history and below PFSH PFSH Social History Little interest or pleasure in doing things: not at all Feeling down, depressed, or hopeless: not at all Exam Narrative Exam Narrative: Nurses notes and vital signs reviewed and patient is not hypoxic. General: Well-appearing and in no apparent distress. Skin: Warm, dry, no pallor noted. No rash. Head: Normocephalic, atraumatic. Neck: Supple, non-tender. Eye: Pupils are equal, round and EOMI. No scleral icterus. Ears, Nose, Mouth, and Throat: The patient have congestion and bulging of the right ear tympanic membrane with serous fluid behind it mild erythema left ear examination was benign and there is no tonsillar erythema or swelling and no compromise of the airway or deviation of the uvula Cardiovascular: Regular Rate and Rhythm without murmur, gallop or rub. Respiratory: No accessory muscle use or respiratory distress. Lungs are clear to auscultation, no wheezing, rales or rhonchi Chest Wall: no tenderness GI: Abdomen is soft, non-distended. Normal bowel sounds. No masses appreciated. No tenderness to palpation. No rebound, guarding, or rigidity noted. Neurological: A&O x4. No cranial nerve dysfunction observed. Constitutional Vital Signs, click to edit/add: Last Vital Signs Temp 98.0 F 03/25/25 11:35 Pulse 76 03/25/25 11:35 Resp 18 03/25/25 11:35 BP 125/71 03/25/25 11:35 Pulse Ox 100 03/25/25 11:35 O2 Del Method Room Air 03/25/25 11:35 Course Vital Signs Vital signs: Vital Signs Temperature 98.0 F 03/25/25 11:35 Pulse Rate 76 03/25/25 11:35 Respiratory Rate 18 03/25/25 11:35 Blood Pressure 125/71 03/25/25 11:35 Pulse Oximetry 100 03/25/25 11:35 Oxygen Delivery Method Room Air 03/25/25 11:35 Temperature 98.0 F 03/25/25 11:35 Pulse Rate 76 03/25/25 11:35 Respiratory Rate 18 03/25/25 11:35 Blood Pressure 125/71 03/25/25 11:35 Pulse Oximetry 100 03/25/25 11:35 Oxygen Delivery Method Room Air 03/25/25 11:35 Medical Decision Making [facility] Narrative Medical decision making narrative: Patient presenting to us with a 1 week history of right ear pain that is mostly second otitis media as per my evaluation He is also a smoker and right now his presenting to us with bronchitis Patient will be covered with a Z-Jaquan for otitis media and also prednisone for the bronchitis Patient also provided with Mucinex The patient to follow-up with the primary care within 2 to 3 days and to come back to the ER in case of any worsening of the current symptoms or any new symptoms or concerns Discharge Plan Discharge Chief Complaint: Chest Pain Clinical Impression: Otitis media, Bronchitis Patient Disposition: Home, Self-Care Time of Disposition Decision: 11:46 Condition: Good Prescriptions / Home Meds: New azithromycin [Zithromax Z-Jaquan] 250 mg tablet See Rx Instructions .ROUTE .COMPLEX Qty: 6 0RF Rx Instructions: For 250 mg dose pack: take 500 mg today (day 1), then 250 mg for 4 days (days 2-5) prednisone 20 mg tablet 40 mg PO DAILY 5 Days Qty: 10 0RF guaifenesin [Mucinex] 600 mg tablet extended release 12hr 600 mg PO BID PRN (Reason: cough) Qty: 14 0RF No Action methadone 135 mg liquid Mavyret 100-40 mg tablet PO TID Print Language: Maori Instructions: Ear Infection (ED), Acute Bronchitis (ED) Referrals: Physician,Non-Staff, MD [Primary Care Provider] - 1 week Discharge Date/Time: 03/25/25 12:10
--- NOTE | 2025-03-25 11:50 | PC.NURSE ---
pt presence for cough x1 weak with associated chest pain pt rates pain a 5/10 denies cardiac hx pt denies taking any over the counter Meds prior to arrival
== END 2025-03-25 12:10 | disposition home or self-care (01) ==
PROVIDERS: Emergency Provider Emergency Medicine
DX: J40 Bronchitis, not specified as acute or chronic (principal); H66.91 Otitis media, unspecified, right ear; F17.210 Nicotine dependence, cigarettes, uncomplicated; B19.20 Unspecified viral hepatitis C without hepatic coma
CPT/HCPCS: 93005; 99283

== ENCOUNTER 2025-03-26 18:31 | Emergency (ER) | payer OTHER, SELFPAY ==
--- OUTSIDE RECORDS SUMMARY | 2024-12-25 10:45 | XMS_ITS | Continuity of Care Document ---
Author Organization [facility] Address [address] [place] [address] Phone Care Team Providers Care Cadd Technician Name Role Phone Shadi LOVE, Andrei Unavailable Unavailable Advance Directives Directive Yes / No Effective Date File Name No Information Encounters Encounter Description Practice Location Reason(s) For Visit Diagnoses Date Provider Providers Copied on Encounter [facility], [address], [place], [id number], [place] tel:[phone] [facility] Other specified counseling Shadi Bullard. [address], [place], [id number], [place]. tel:[phone] Family History Family Member Type Diagnosis Age At Onset No Information Payers Payer name Insurance type Covered republican ID Authoriza tion(s) No Information Social History Type Description Quantity Date Captured Comments Alcohol Use Details Unknown Caffeine Use Details Unknown Tobacco Use Status No Information Smoking Status No Information Sex Male Sexual Orientation Straight or heterosexual Gender Identity Male Chief Complaint And Reason For Visit No Information Reason For Referral Reason For Referral No Information Plan Of Treatment Date Type Action Status Goal Unhealthy drug use screening . Due on due Goal Tdap Vaccine. Due on 2024 due Goal Lipid panel. Due on 025 due Goal Hep A. Due on du e Goal Depression screening. Due on due Goal RLP. Due on due Goal Tdap. Due on due Goal Influenza vaccine. Due on due Goal Hepatitis C screening. Due o n due Goal PRAPARE ASSESSMENT. Due on due History Of Present Illness Encounter Date Complaint History Of Prese nt Illness No Information Functional Status Date Functional Assessmen t No Information Instructions Date Instruction Additional Infor mation No Information Assessments Type Assessment Date assessment Other specified counseling Patient Care Teams Name Effective Dates (start - stop) Status Members No Information
--- OUTSIDE RECORDS SUMMARY | 2025-03-26 18:38 | XMS_ITS | CCD ---
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 Glucose of more than 200 mg/dL in a nonstressed, ambulatory subject supports the diagnosis of Diabetes Mellitus. ADA recommended reference rangePerformed By: #### ETOH, PRL, CBC, CMP #### [facility] [address] [place] [address] USAPotassium [Moles/Vol]4.5 mmol/LNormal3.5-5.1FHenry County HospitalComment on above:Performed By: #### ETOH, PRL, CBC, CMP #### [facility] [address] [place] [address] USAProtein [Mass/Vol]7.3 g/dLNormal6.1-7.9Children'S Hospital Of ColumbusComment on above:Performed By: #### ETOH, PRL, CBC, CMP #### [facility] [address] [place] [address] USASodium [Moles/Vol]136 mmol/IKzjfpe592-872IfaouhrmiChildren'S Hospital Of ColumbusComment on above:Performed By: #### ETOH, PRL, CBC, CMP #### [facility] [address] [place] [address] USAUrea nitrogen [Mass/Vol]14 mg/dLNormal9-Children'S Hospital Of ColumbusComment on above:Performed By: #### ETOH, PRL, CBC, CMP #### [facility] [address] [place] [address] USADipstick and Microscopicon 09-88-7120Nubixehthr (U)Clear NormalCleSelect Medical Specialty Hospital - Columbus SouthComment on above:Order Comment: Name Collection Type:: Clean-Voided MidstreamPerformed By: #### URDS, ADDONUAPLUS #### [facility] [address] [place] [address] USABacteria,UrineNone SeenNormalNone SeenChildren'S Hospital Of ColumbusComment on above:Order Comment: Name Collection Type:: Clean- Voided MidstreamPerformed By: #### URDS, ADDONUAPLUS #### [place] [address] USABilirubin,UrineNegativeNormalNegativeChildren'S Hospital Of ColumbusComment on above:Order Comment: Name Collection Type:: Clean- Voided MidstreamPerformed By: #### URDS, ADDONUAPLUS #### [facility] [address] [place] [address] USAColor (U)Dark YellowCritically abnormalYellowChildren'S Hospital Of ColumbusComment on above:Order Comment: Name Collection Type:: Clean-Voided MidstreamPerformed By: #### URDS, ADDONUAPLUS #### [place] [address] USAGlucose Ql (U)NormalNormalNormSelect Medical Specialty Hospital - ColumbusComment on above:Order Comment: Name Collection Type:: Clean-Voided MidstreamPerformed By: #### URDS, ADDONUAPLUS #### [place] [address] USAHyaline Casts,Gexpk8-8Xyyhdm3-3VjbzwdhewChildren'S Hospital Of ColumbusComment on above:Order Comment: Name Collection Type:: Clean-Voided MidstreamResult Comment: PERFORMED BY: [place] [address] PATHOLOGIST HOMEOPATHIC DOCTOR SHARA HORAN M.D.Performed By: #### URDS, ADDONUAPLUS #### [place] [address] USAKetones Ql (U)2+HighNegativeChildren'S Hospital Of ColumbusComment on above:Order Comment: Name Collection Type:: Clean-Voided MidstreamPerformed By: #### URDS, ADDONUAPLUS #### [place] [address] USALeukocyte esterase Test strip Ql (U)1+HighNegative Children'S Hospital Of ColumbusComment on above:Order Comment: Name Collection Type:: Clean-Voided MidstreamPerformed By: #### URDS, ADDONUAPLUS #### [place] [address] USANitrite,UrineNegativeNormnmNegJ.W. Ruby Memorial HospitalComment on above:Order Comment: Name Collection Type:: Clean- Voided MidstreamPerformed By: #### URDS, ADDONUAPLUS #### [place] [address] USAOccult Blood,UrineNegativeNormalNegJ.W. Ruby Memorial HospitalComment on above:Order Comment: Name Collection Type:: Clean- Voided MidstreamResult Comment: PERFORMED BY: [place] [address] PATHOLOGIST HOMEOPATHIC DOCTOR SHARA HORAN M.D.Performed By: #### URDS, ADDONUAPLUS #### [place] [address] USApH (U)7.5 [pH]Normal5.0-9.0Children'S Hospital Of ColumbusComment on above:Order Comment: Name Collection Type:: Clean-Voided MidstreamPerformed By: #### URDS, ADDONUAPLUS #### [facility] [address] [place] [address] USAProtein (U) [Mass/Vol]30 mg/dLHighNegativeChildren'S Hospital Of ColumbusComment on above:Order Comment: Name Collection Type:: Clean-Voided MidstreamPerformed By: #### URDS, ADDONUAPLUS #### [place] [address] USARBC,Cemae9-9Dchfuc2-1NhzakiwtwHenry County Hospital Comment on above:Order Comment: Name Collection Type:: Clean-Voided Midstream Performed By: #### URDS, ADDONUAPLUS #### [place] [address] USASpecificy [place],Urine1.748Gsewkl7.001-1.030Children'S Hospital Of ColumbusComment on above:Order Comment: Name Collection Type:: Clean-Voided MidstreamPerformed By: #### URDS, ADDONUAPLUS #### [facility] [address] [place] [address] USASquamous Epithelial Cell,Vlics4-8Bgfbuu1-6AekyznlpnHenry County HospitalComment on above:Order Comment: Name Collection Type:: Clean-Voided MidstreamPerformed By: #### URDS, ADDONUAPLUS #### [facility] [address] [place] [address] USAUrobilinogen,UrineNormalNormalNormalChildren'S Hospital Of ColumbusComment on above:Order Comment: Name Collection Type:: Clean- Voided MidstreamPerformed By: #### URDS, ADDONUAPLUS #### [place] [address] USAWBC,Mzcdi3-8Ejvnbd4-7CfkqxowuoHenry County Hospital Comment on above:Order Comment: Name Collection Type:: Clean-Voided Midstream Performed By: #### URDS, ADDONUAPLUS #### [place] [address] USADrug Screen,Urineon 87-67-2865Koewwqbwhyn Screen,Urine PositiveHighNegJ.W. Ruby Memorial HospitalComment on above:Performed By: #### UMM, ADDONUAPLUS #### [place] [address] USABarbiturate Screen,UrineNegativeNormalNegativeChildren'S Hospital Of ColumbusComment on above:Performed By: #### URVINH, ADDONUAPLUS #### [place] [address] USABenzodiazepines Screen,UrinePositiveHighNegJ.W. Ruby Memorial HospitalComment on above:Performed By: #### UMM, ADDONUAPLUS #### [place] [address] USACannabinoid Screen,UrinePositiveHighland HospitalNegJ.W. Ruby Memorial HospitalComment on above:Result Comment: These are unconfirmed results and should not be used for legal purposes. Drug Cut-Off Concentration: AMPH 1000 ng/mL CONNOR 200 ng/mL JACQUELINE 200 ng/mL COCM 300 ng/mL OP 300 ng/mL PCP 25 ng/mL THC 20 ng/mL PERFORMED BY: [place] [address] PATHOLOGIST HOMEOPATHIC DOCTOR SHARA HORAN M.D.Performed By: #### UMM, ADDONUAPLUS #### [place] [address] USACocaine Screen,UrineNegativeNormalNegJ.W. Ruby Memorial HospitalComment on above:Performed By: #### URVINH, ADDONUAPLUS #### [place] [address] USAOpiate Screen,UrineNegativeNormalNegativeChildren'S Hospital Of ColumbusComment on above:Performed By: #### URVINH, ADDONUAPLUS #### [place] [address] USAPhencyclidine Screen,UrineNegativeNormalNegativeChildren'S Hospital Of ColumbusComment on above:Performed By: #### URVINH, ADDONUAPLUS #### [facility] [address] [place], [place] [address] USAECG 12 lead ECGon [id number] 12 lead ECGNORWALK MEMORIAL [facility] [place] [address] [place] [address] Electrocardiograph Report Signed Patient: Dalton Delgado MR#: [id number] : 1980 Acct:[id number] Age/Sex: 40 / M ADM Date: 12/06/20 Loc: ER Room: Type: [facility] ER Attending Dr: Ordering Provider: James Bacon DO Date of Service: 12/06/20 ECG/ECG 12 lead ECG: Seizure Copies to: Test Reason : Blood Pressure : 116/066 mmHG Vent. Rate : 109 BPM Atrial Rate : 109 BPM P-R Int : 132 ms QRS Dur : 082 ms QT Int : 332 ms P-R-T Axes : 086 077 075 degrees QTc Int : 447 ms Sinus tachycardia Otherwise normal ECG When compared with ECG of 13-SEP-2019 20:27, No significant change was found Confirmed by JAMES BACON DO ([id number]) on 12/07/2020 2:45:49 PM Referred By: Electronically Signed By:JAMES BACON DO Transcribed By: MUS Dictated By: James Bacon DO 12/06/20 1154 Signed By: 12/07/20 1445Pro[facility] Fostoria Community HospitalEthyl Alcohol Profileon 65-88-9269Jrbnpfa [Mass/Vol]mg/dLNoBlanchard Valley Health System Bl[facility] Valley HospitalComment on above:Performed By: #### ETOH, PRL, CBC, CMP #### [facility] [address] [place] [address] USAPercent EthanolNot performedProMedica Fostoria Community HospitalComment on above:Result Comment: PERFORMED BY: [place] [address] PATHOLOGIST HOMEOPATHIC DOCTOR SHARA HORAN M.D.Performed By: #### ETOH, PRL, CBC, CMP #### [facility] [address] [place] [address] USAProlactinon 43-81-6018Nalozvcai1.14 ng/mLNormal2.64-13.13 [facility]'S Hospital Of ColumbusComment on above:Result Comment: PERFORMED BY: [place] [address] PATHOLOGIST HOMEOPATHIC DOCTOR SHARA HORAN M.D.Performed By: #### ETOH, PRL, CBC, CMP #### [facility] [address] [place] [address] USACBC with Diffon [id number]. Basophil0.05 k/uLNormal 0.00-0.20Kn[facility] Community HospitalComment on above:Performed By: #### CDP, PT, PTT, BMP, GGT, LIVP, PHEP, TREP, HIVCMB #### [facility] [employer] [address] [place] [address] Abs.Imm.Granulocyte0.03 k/uLNormal0.00-0.30MerSharp Coronado HospitalComment on above:Performed By: #### CDP, PT, PTT, BMP, GGT, LIVP, PHEP, TREP, HIVCMB #### [facility] [address] [place] [address] Abs.Neutrophil (Seg)4.25 k/uLNormal1.50-8.10[facility] HospitalComment on above:Performed By: #### CDP, PT, PTT, BMP, GGT, LIVP, PHEP, TREP, HIVCMB #### [facility] [employer] [address] [place] [address] Basophils/100 WBC (Bld)1 %Normal0-2MGlendale Research Hospital Comment on above:Performed By: #### CDP, PT, PTT, BMP, GGT, LIVP, PHEP, TREP, HIVCMB #### [facility] [employer] [address] [place] [address] Eosinophils #/vol (Bld)0.39 10*3/uLNormal0.00-0.44[facility] HospitalComment on above:Performed By: #### CDP, PT, PTT, BMP, GGT, LIVP, PHEP, TREP, HIVCMB #### [place] [address] Eosinophils/100 WBC (Bld)6 %High1-4[facility] Comment on above:Performed By: #### CDP, PT, PTT, BMP, GGT, LIVP, PHEP, TREP, HIVCMB #### [place] [address] Erythrocyte distribution width Ratio (RBC)13.6 %Xvlpba99.8-14.4 [facility] HospitalComment on above:Performed By: #### CDP, PT, PTT, BMP, GGT, LIVP, PHEP, TREP, HIVCMB #### [place] [address] Hematocrit Volume Fraction (Bld)42.8 %Mtatrt30.7-50.3MGlendale Research HospitalComment on above:Performed By: #### CDP, PT, PTT, BMP, GGT, LIVP, PHEP, TREP, HIVCMB #### [place] [address] Hemoglobin mass conc (Bld)14.2 g/wAWvvikq56.0-17.0[facility] HospitalComment on above:Performed By: #### CDP, PT, PTT, BMP, GGT, LIVP, PHEP, TREP, HIVCMB #### [place] [address] Immature granulocytes #/vol (Bld)0 %Zaxrqu1ZlgqcKnox Community HospitalComment on above:Performed By: #### CDP, PT, PTT, BMP, GGT, LIVP, PHEP, TREP, HIVCMB #### [place] [address] Lymphocytes #/vol (Bld)1.94 10*3/uLNormal1.10-3.70[facility] HospitalComment on above:Performed By: #### CDP, PT, PTT, BMP, GGT, LIVP, PHEP, TREP, HIVCMB #### [facility] [employer] [address] [place] [address] Lymphocytes/100 WBC (Bld)27 %Hpwezh93-99ZxmxtKnox Community HospitalComment on above:Performed By: #### CDP, PT, PTT, BMP, GGT, LIVP, PHEP, TREP, HIVCMB #### [facility] [employer] [address] [place] [address] MC Entitic mass (RBC)28.1 tzPtmdci44.2-33.5[facility] HospitalComment on above:Performed By: #### CDP, PT, PTT, BMP, GGT, LIVP, PHEP, TREP, HIVCMB #### [facility] [employer] [address] [place] [address] MCHC mass conc (RBC)33.2 g/bGJjrzbk80.4-34.8[facility] HospitalComment on above:Performed By: #### CDP, PT, PTT, BMP, GGT, LIVP, PHEP, TREP, HIVCMB #### [facility] [employer] [address] [place] [address] MCV Entitic volume (RBC)84.6 fIUplckn49.6-102.9[facility] HospitalComment on above:Performed By: #### CDP, PT, PTT, BMP, GGT, LIVP, PHEP, TREP, HIVCMB #### [place] [address] Monocytes #/vol (Bld)0.49 10*3/uLNormal0.10-1.20[facility] HospitalComment on above:Performed By: #### CDP, PT, PTT, BMP, GGT, LIVP, PHEP, TREP, HIVCMB #### [facility] [employer] [address] [place] [address] Monocytes/100 WBC (Bld)7 %Normal3-12[facility] HospitalComment on above:Performed By: #### CDP, PT, PTT, BMP, GGT, LIVP, PHEP, TREP, HIVCMB #### [place] [address] Neutrophil (Seg)59 %Vbcufr30-82JvhztKnox Community Hospital Comment on above:Performed By: #### CDP, PT, PTT, BMP, GGT, LIVP, PHEP, TREP, HIVCMB #### [place] [address] NRBC Automated0.0 per 100 WBCNormal0.0[facility] Community HospitalComment on above:Performed By: #### CDP, PT, PTT, BMP, GGT, LIVP, PHEP, TREP, HIVCMB #### [place] [address] Platelet mean volume Entitic volume (Bld)11.6 fLNormal8.1-13.5[facility] HospitalComment on above:Performed By: #### CDP, PT, PTT, BMP, GGT, LIVP, PHEP, TREP, HIVCMB #### [place] [address] Platelets #/vol (Bld)208 10*3/bAWutgig106-056JkqhbKnox Community HospitalComment on above:Performed By: #### CDP, PT, PTT, BMP, GGT, LIVP, PHEP, TREP, HIVCMB #### [place] [address] RBC #/vol (Bld)5.06 10*6/uLNormal4.21-5.77[facility] Medical CenterComment on above:Performed By: #### CDP, PT, PTT, BMP, GGT, LIVP, PHEP, TREP, HIVCMB #### [facility] [address] [place] [address] WBC #/vol (Bld)7.2 10*3/uLNormal3.5-11.3[facility] Medical CenterComment on above:Performed By: #### CDP, PT, PTT, BMP, GGT, LIVP, PHEP, TREP, HIVCMB #### [facility] [address] [place] [address] Auto Diff PerformedNOT REPORTEDMercy Health Allen HospitalComment on above:Performed By: #### CDP, PT, PTT, BMP, GGT, LIVP, PHEP, TREP, HIVCMB #### [facility] [employer] [address] [place] [address] Platelets #/vol (Bld)NOT REPORTEDMercy Health Allen HospitalComment on above:Performed By: #### CDP, PT, PTT, BMP, GGT, LIVP, PHEP, TREP, HIVCMB #### [facility] [address] [place] [address] RBC morphology finding Nom (Bld)NOT REPORTEDMercy Health Allen HospitalComment on above:Performed By: #### CDP, PT, PTT, BMP, GGT, LIVP, PHEP, TREP, HIVCMB #### [facility] [address] [place] [address] WBC MorphologyNOT REPORTEDMercy Health Allen Hospital Comment on above:Performed By: #### CDP, PT, PTT, BMP, GGT, LIVP, PHEP, TREP, HIVCMB #### [facility] [address] [place] [address] Comp Metab w/Bili Pron [id number] Ql (U)<0.10Low0.3-1.2 [facility] HospitalComment on above:Performed By: #### CDP, PT, PTT, BMP, GGT, LIVP, PHEP, TREP, HIVCMB #### [address] [address] Bilirubin, IndirectCANNOT BE CALCULATEDNormal0.00-1.00[facility] HospitalComment on above:Performed By: #### CDP, PT, PTT, BMP, GGT, LIVP, PHEP, TREP, HIVCMB #### [address] [address] (cont.)NormalKnox Community HospitalComment on above: Result Comment: Average GFR for 30-39 years old: 107 mL/min/1.73sq m Chronic Kidney Disease: <60 mL/min/1.73sq m Kidney failure: <15 mL/min/1.73sq m eGFR calculated using average adult body mass. Additional eGFR calculator available at: http://www.Waste2Tricity.Webroot/multiple_crcl_2012.htmPerformed By: #### CDP, PT, PTT, BMP, GGT, LIVP, PHEP, TREP, HIVCMB #### [address] [address] Albumin mass conc3.9 g/dLNormal3.5-5.2MGlendale Research HospitalComment on above:Performed By: #### CDP, PT, PTT, BMP, GGT, LIVP, PHEP, TREP, HIVCMB #### [address] [place] [address] Albumin/Globulin mass ratio1.6 {ratio}Normal1.0-2.5[facility] HospitalComment on above:Performed By: #### CDP, PT, PTT, BMP, GGT, LIVP, PHEP, TREP, HIVCMB #### [facility] [address] [place] [address] Alkaline Phos60 U/LCvftzf74-323OssnqKnox Community Hospital Comment on above:Performed By: #### CDP, PT, PTT, BMP, GGT, LIVP, PHEP, TREP, HIVCMB #### [facility] [employer] [address] [place] [address] ALT enzyme act/vol15 U/LNormal5-41[facility] Comment on above:Performed By: #### CDP, PT, PTT, BMP, GGT, LIVP, PHEP, TREP, HIVCMB #### [facility] [employer] [address] [place] [address] Anion gap molar conc12 mmol/LNormal9-17[facility] HospitalComment on above:Performed By: #### CDP, PT, PTT, BMP, GGT, LIVP, PHEP, TREP, HIVCMB #### [facility] [employer] [address] [place] [address] AST enzyme act/vol14 U/LNormal<40[facility] Comment on above:Performed By: #### CDP, PT, PTT, BMP, GGT, LIVP, PHEP, TREP, HIVCMB #### [facility] [employer] [address] [place] [address] Bilirubin.direct mass concmg/dLNormal<0.31[facility] HospitalComment on above:Performed By: #### CDP, PT, PTT, BMP, GGT, LIVP, PHEP, TREP, HIVCMB #### [facility] [employer] [address] [place] [address] Calcium mass conc8.9 mg/dLNormal8.6-10.4[facility] HospitalComment on above:Performed By: #### CDP, PT, PTT, BMP, GGT, LIVP, PHEP, TREP, HIVCMB #### [address] [address] Chloride molar sfrx549 mmol/VEima59-695KxmjxKnox Community HospitalComment on above:Performed By: #### CDP, PT, PTT, BMP, GGT, LIVP, PHEP, TREP, HIVCMB #### [address] [address] CO2 molar conc27 mmol/VXprmup94-73ZpgjhKnox Community Hospital Comment on above:Performed By: #### CDP, PT, PTT, BMP, GGT, LIVP, PHEP, TREP, HIVCMB #### [address] [address] Creatinine mass conc0.85 mg/dLNormal0.70-1.20[facility] HospitalComment on above:Performed By: #### CDP, PT, PTT, BMP, GGT, LIVP, PHEP, TREP, HIVCMB #### [address] [address] GFR, Amer>60Normal>60[facility] HospitalComment on above:Performed By: #### CDP, PT, PTT, BMP, GGT, LIVP, PHEP, TREP, HIVCMB #### [address] [address] GFR,non Amer>60Normal>60[facility] Comment on above:Performed By: #### CDP, PT, PTT, BMP, GGT, LIVP, PHEP, TREP, HIVCMB #### [address] [address] Glucose mass dsdy340 mg/nUPauj42-64QpeunGlendale Research Hospital Comment on above:Performed By: #### CDP, PT, PTT, BMP, GGT, LIVP, PHEP, TREP, HIVCMB #### [address] [address] Potassium molar conc5.0 mmol/LNormal3.7-5.3[facility] Medical CenterComment on above:Performed By: #### CDP, PT, PTT, BMP, GGT, LIVP, PHEP, TREP, HIVCMB #### [facility] [employer] [address] [place] [address] Protein mass conc6.4 g/dLNormal6.4-8.3MGlendale Research HospitalComment on above:Performed By: #### CDP, PT, PTT, BMP, GGT, LIVP, PHEP, TREP, HIVCMB #### [facility] [employer] [address] [place] [address] Sodium molar kmho311 mmol/DLwti104-223UagheKnox Community HospitalComment on above:Performed By: #### CDP, PT, PTT, BMP, GGT, LIVP, PHEP, TREP, HIVCMB #### [facility] [employer] [address] [place] [address] Urea nitrogen mass conc14 mg/dLNormal6-20[facility] HospitalComment on above:Performed By: #### CDP, PT, PTT, BMP, GGT, LIVP, PHEP, TREP, HIVCMB #### [facility] [employer] [address] [place] [address] Staging:NOT REPORTEDNoUniversity Hospitals Portage Medical CenterComment on above:Performed By: #### CDP, PT, PTT, BMP, GGT, LIVP, PHEP, TREP, HIVCMB #### [facility] [employer] [address] [place] [address] QuantiFERON TBon [id number] Sohan minus NIL>10.00NoUniversity Hospitals Portage Medical CenterComment on above:Performed By: #### CDP, PT, PTT, BMP, GGT, LIVP, PHEP, TREP, HIVCMB #### [facility] [address] [place] [address] Quanti TB Gold PlusNegativeNormalKnox Community Hospital Comment on above:Result Comment: (NOTE) Interpretive Data: Quantiferon TB Gold Plus Interferon gamma release is measured for specimens from each of the four collection tubes. A qualitative result (Negative, Positive, or Indeterminate) is based on interpretation of the four values, NIL, MITOGEN minus NIL (MITOGEN-NIL), TB1 minus NIL (TB1-NIL), and TB2 minus NIL (TB2-NIL). The NIL value represents nonspecific reactivity produced by the patient specimen. The MITOGEN-NIL value serves as the positive control for the patient specimen, demonstrating successful lymphocyte activity. The TB1-NIL tube specifically detects CD4+ lymphocyte reactivity, specifically stimulated by the TB1 antigens. The TB2-NIL tube detects both CD4+ and CD8+ lymphocyte reactivity, stimulated by TB2 antigens. An overall Negative result does not completely rule out TB infection. A false-positive result in the absence of other clinical evidence of TB infection is not uncommon. Refer to: Updated Guidelines for Using Interferon Gamma Release Assays to Detect Mycobacterium tuberculosis Infection --- [place], 2010 (http://www.cdc.gov/mmwr/preview/mmwrhtml/ki4999v7.htm), for more information concerning test performance in low-prevalence populations and use in occupational screening.Performed By: #### CDP, PT, PTT, BMP, GGT, LIVP, PHEP, TREP, HIVCMB #### [facility] [place] [address] Quanti TB1 minus NIL0.00 IU/mLNormal0.00-0.34[facility] HospitalComment on above:Performed By: #### CDP, PT, PTT, BMP, GGT, LIVP, PHEP, TREP, HIVCMB #### [facility] [place] [address] Quanti TB2 minus NIL0.00 IU/mLNormal0.00-0.34[facility] HospitalComment on above:Performed By: #### CDP, PT, PTT, BMP, GGT, LIVP, PHEP, TREP, HIVCMB #### [address] [address] QuantiFERON NIL0.04 IU/mLNormalKnox Community Hospital Comment on above:Result Comment: (NOTE) Performed by [facility], [address] [place] [address] [phone] [email or web address], Roger Oneal MD, Lab. DirectorPerformed By: #### CDP, PT, PTT, BMP, GGT, LIVP, PHEP, TREP, HIVCMB #### [address] [address] CBC with Diffon [id number]. Basophil0.06 k/uLNormal0.00-0.20 [facility] HospitalComment on above:Performed By: #### CDP, LIPR, FT3, CPBILC, FT4, TSH, PHEP, HIVCMB #### [address] [address] Fireworks Display Specialist: Dio Mcdonnell MD #### AQF #### [address] [id number] Fireworks Display Specialist: Vickie Phillip.Imm.Granulocyte<0.31Aihmmr6.00-0.30[facility] HospitalComment on above:Performed By: #### CDP, LIPR, FT3, CPBILC, FT4, TSH, PHEP, HIVCMB #### [address] [address] Fireworks Display Specialist: Dio Mcdonnell MD #### AQF #### [address] [id number] Fireworks Display Specialist: Vickie Phillip.Neutrophil (Seg)5.03 k/uLNormal1.50-8.10[facility] HospitalComment on above:Performed By: #### CDP, LIPR, FT3, CPBILC, FT4, TSH, PHEP, HIVCMB #### [facility] [address] [place] [address] Fireworks Display Specialist: Dio Mcdonnell MD #### AQF #### [facility] [address] [place] [address] Fireworks Display Specialist: Roger Oneal MDBasophils/100 WBC (Bld)1 %Normal0-2[facility] Medical CenterComment on above:Performed By: #### CDP, LIPR, FT3, CPBILC, FT4, TSH, PHEP, HIVCMB #### [address] [address] Fireworks Display Specialist: Dio Mcdonnell MD #### AQF #### [facility] [address] [place] [phone] Fireworks Display Specialist: Roger Oneal MDEosinophils #/vol (Bld)0.42 10*3/uLNormal 0.00-0.44[facility] Centercy [facility] Medical CenterComment on above:Performed By: #### CDP, LIPR, FT3, CPBILC, FT4, TSH, PHEP, HIVCMB #### [address] [address] [address] Fireworks Display Specialist: Dio Mcdonnell MD #### AQF #### [facility] [address] [place] [address] Fireworks Display Specialist: ELIZABETH Philliposinophils/100 WBC (Bld)5 %High1-4Kn[facility] HospitalComment on above:Performed By: #### CDP, LIPR, FT3, CPBILC, FT4, TSH, PHEP, HIVCMB #### [address] [address] Fireworks Display Specialist: Dio Mcdonnell MD #### AQF #### [facility] [address] [place], [place] [id number] Fireworks Display Specialist: Roger Oneal MDErythrocyte distribution width Ratio (RBC)13.8 % Pkhkze75.8-14.4Kn[facility] HospitalComment on above:Performed By: #### CDP, LIPR, FT3, CPBILC, FT4, TSH, PHEP, HIVCMB #### [facility] [address] [place] [address] Fireworks Display Specialist: Dio Mcdonnell MD #### AQF #### [facility] [address] [place] [address] Fireworks Display Specialist: Roger Oneal MDHematocrit Volume Fraction (Bld)45.2 %Normal 40.7-50.3Meast [facility]y [facility] Medical CenterComment on above:Performed By: #### CDP, LIPR, FT3, CPBILC, FT4, TSH, PHEP, HIVCMB #### [facility] [address] [place] [address] Fireworks Display Specialist: Dio Mcdonnell MD #### AQF #### [facility] [address] [place] [address] Fireworks Display Specialist: Roger Oneal MDHemoglobin mass conc (Bld)14.4 g/dLNormal 13.0-17.0Kn[facility] HospitalComment on above:Performed By: #### CDP, LIPR, FT3, CPBILC, FT4, TSH, PHEP, HIVCMB #### [facility] [address] [place] [address] Fireworks Display Specialist: Dio Mcdonnell MD #### AQF #### [facility] [address] [place] [address] Fireworks Display Specialist: Roger Oneal MDImmature granulocytes #/vol (Bld)0 %Adjajz1NymwwKnox Community HospitalComment on above:Performed By: #### CDP, LIPR, FT3, CPBILC, FT4, TSH, PHEP, HIVCMB #### [facility] [address] [place] [address] Fireworks Display Specialist: Dio Mcdonnell MD #### AQF #### [facility] [address] [place] [address] Fireworks Display Specialist: Ketty Phillipmphocytjesse #/vol (Bld)2.32 10*3/uLNormal 1.10-3.70Kn[facility] HospitalComment on above:Performed By: #### CDP, LIPR, FT3, CPBILC, FT4, TSH, PHEP, HIVCMB #### [facility] [address] [place] [address] Fireworks Display Specialist: Dio Mcdonnell MD #### AQF #### [facility] [address] [place] [address] Fireworks Display Specialist: Nini Philliphocytes/100 WBC (Bld)27 %Cjixrg51-43LikquKnox Community HospitalComment on above:Performed By: #### CDP, LIPR, FT3, CPBILC, FT4, TSH, PHEP, HIVCMB #### [facility] [address] [place] [address] Fireworks Display Specialist: Dio Mcdonnell MD #### AQF #### [facility] [address] [place] [address] Fireworks Display Specialist: CHERIE PhillipCH Entitic mass (RBC)27.6 xeCvypow81.2-33.5Kn[facility] HospitalComment on above:Performed By: #### CDP, LIPR, FT3, CPBILC, FT4, TSH, PHEP, HIVCMB #### [facility] [address] [place] [address] Fireworks Display Specialist: Dio Mcdonnell MD #### AQF #### [facility] [address] [place], [place] [address] Fireworks Display Specialist: CHERIE PhillipCHC mass conc (RBC)31.9 g/eLUaldia63.4-34.8Kn[facility] Community HospitalComment on above:Performed By: #### CDP, LIPR, FT3, CPBILC, FT4, TSH, PHEP, HIVCMB #### [facility] [address] [place] [address] Fireworks Display Specialist: Dio Mcdonnell MD #### AQF #### [facility] [address] [place], [place] [address] Fireworks Display Specialist: CHERIE PhillipCV Entitic volume (RBC)86.6 yABvgyxh13.6-102.9 [facility] HospitalComment on above:Performed By: #### CDP, LIPR, FT3, CPBILC, FT4, TSH, PHEP, HIVCMB #### [address] [address] Fireworks Display Specialist: Dio Mcdonnell MD #### AQF #### [facility] [address] [place], [place] [address] Fireworks Display Specialist: CHERIE Philliponocytes #/vol (Bld)0.62 10*3/uLNormal0.10-1.20 [facility] HospitalComment on above:Performed By: #### CDP, LIPR, FT3, CPBILC, FT4, TSH, PHEP, HIVCMB #### [address] [address] Fireworks Display Specialist: Dio Mcdonnell MD #### AQF #### [facility] [address] [place], [place] [id number] Fireworks Display Specialist: CHERIE Philliponocytes/100 WBC (Bld)7 %Normal3-12[facility] HospitalComment on above:Performed By: #### CDP, LIPR, FT3, CPBILC, FT4, TSH, PHEP, HIVCMB #### [facility] [address] [place] [address] Fireworks Display Specialist: Dio Mcdonnell MD #### AQF #### [facility] [address] [place] [address] Fireworks Display Specialist: Roger Oneal MDNeutrophil (Seg)60 %Warmdl03-01WlhwnKnox Community HospitalComment on above:Performed By: #### CDP, LIPR, FT3, CPBILC, FT4, TSH, PHEP, HIVCMB #### [facility] [address] [place] [address] Fireworks Display Specialist: Dio Mcdonnell MD #### AQF #### [facility] [address] [place] [address] Fireworks Display Specialist: Roger Oneal MDNRBC Automated0.0 per 100 WBCNormal0.0Kn[facility] HospitalComment on above:Performed By: #### CDP, LIPR, FT3, CPBILC, FT4, TSH, PHEP, HIVCMB #### [facility] [address] [place] [address] Fireworks Display Specialist: Dio Mcdonnell MD #### AQF #### [facility] [address] [place] [address] Fireworks Display Specialist: Lia Phillip mean volume Entitic volume (Bld)11.3 fL Normal8.1-13.5Kn[facility] Community HospitalComment on above:Performed By: #### CDP, LIPR, FT3, CPBILC, FT4, TSH, PHEP, HIVCMB #### [facility] [address] [place] [address] Fireworks Display Specialist: Dio Mcdonnell MD #### AQF #### [facility] [address] [place] [address] Fireworks Display Specialist: Pancho Phillip #/vol (Bld)241 10*3/zVMysslj586-298 [facility] HospitalComment on above:Performed By: #### CDP, LIPR, FT3, CPBILC, FT4, TSH, PHEP, HIVCMB #### [facility] [address] [place] [address] Fireworks Display Specialist: Dio Mcdonnell MD #### AQF #### [facility] [address] [place] [address] Fireworks Display Specialist: KENAN Phillip #/vol (Bld)5.22 10*6/uLNormal4.21-5.77Kn[facility] HospitalComment on above:Performed By: #### CDP, LIPR, FT3, CPBILC, FT4, TSH, PHEP, HIVCMB #### [address] [address] Fireworks Display Specialist: Dio Mcdonnell MD #### AQF #### [facility] [address] [place] [address] Fireworks Display Specialist: Roger Oneal MDWBC #/vol (Bld)8.5 10*3/uLNormal3.5-11.3MGlendale Research HospitalComment on above:Performed By: #### CDP, LIPR, FT3, CPBILC, FT4, TSH, PHEP, HIVCMB #### [address] [address] Fireworks Display Specialist: Dio Mcdonnell MD #### AQF #### [facility] [address] [place] [address] Fireworks Display Specialist: Jacqueline PhillipNOT REPORTEDMercy Health Allen HospitalComment on above:Performed By: #### CDP, LIPR, FT3, CPBILC, FT4, TSH, PHEP, HIVCMB #### [facility] [address] [place] [address] Fireworks Display Specialist: Dio Mcdonnell MD #### AQF #### [facility] [address] [place], [place] [id number] Fireworks Display Specialist: ROLF Philliplatelets #/vol (Bld)NOT REPORTEDNormalKnox Community HospitalComment on above:Performed By: #### CDP, LIPR, FT3, CPBILC, FT4, TSH, PHEP, HIVCMB #### [facility] [address] [place] [address] Fireworks Display Specialist: Dio Mcdonnell MD #### AQF #### [facility] [address] [place], [place] [id number] Fireworks Display Specialist: NADEEM PhillipBC morphology finding Nom (Bld)NOT REPORTED NormalKnox Community HospitalComment on above:Performed By: #### CDP, LIPR, FT3, CPBILC, FT4, TSH, PHEP, HIVCMB #### [facility] [address] [place] [address] Fireworks Display Specialist: Dio Mcdonnell MD #### AQF #### [facility] [address] [place], [place] [id number] Fireworks Display Specialist: Roger Oneal MDWBC MorphologyNOT REPORTEDNormDelaware County HospitalComment on above:Performed By: #### CDP, LIPR, FT3, CPBILC, FT4, TSH, PHEP, HIVCMB #### [facility] [address] [place] [address] Fireworks Display Specialist: Dio Mcdonnell MD #### AQF #### [facility] [address] [place], [place] [address] Fireworks Display Specialist: ISAÍAS Phillipomp Metab w/Bili Pron 83-16-0789Vkzdunzmg Ql (U) <0.10Low0.3-1.2[facility] Springs Medical CenterComment on above:Performed By: #### CDP, PT, PTT, BMP, GGT, LIVP, PHEP, TREP, HIVCMB #### [facility] [address] [place] [address] Bilirubin, IndirectCANNOT BE CALCULATEDNormal0.00-1.00Kn[facility] HospitalComment on above:Performed By: #### CDP, PT, PTT, BMP, GGT, LIVP, PHEP, TREP, HIVCMB #### [facility] [address] [place] [address] (cont.)NormalKnox Community HospitalComment on above: Result Comment: Average GFR for 30-39 years old: 107 mL/min/1.73sq m Chronic Kidney Disease: <60 mL/min/1.73sq m Kidney failure: <15 mL/min/1.73sq m eGFR calculated using average adult body mass. Additional eGFR calculator available at: http://www.Waste2Tricity.Webroot/multiple_crcl_2012.htmPerformed By: #### CDP, PT, PTT, BMP, GGT, LIVP, PHEP, TREP, HIVCMB #### [facility] [address] [place] [address] Albumin mass conc3.9 g/dLNormal3.5-5.2MGlendale Research HospitalComment on above:Performed By: #### CDP, PT, PTT, BMP, GGT, LIVP, PHEP, TREP, HIVCMB #### [facility] [address] [place] [address] Albumin/Globulin mass ratio1.4 {ratio}Normal1.0-2.5Kn[facility] Community HospitalComment on above:Performed By: #### CDP, PT, PTT, BMP, GGT, LIVP, PHEP, TREP, HIVCMB #### [facility] [address] [place] [address] Alkaline Phos63 U/FLqrwck87-229BdkxhKnox Community Hospital Comment on above:Performed By: #### CDP, PT, PTT, BMP, GGT, LIVP, PHEP, TREP, HIVCMB #### [facility] [employer] [address] [place] [address] ALT enzyme act/vol22 U/LNormal5-41[facility] Comment on above:Performed By: #### CDP, PT, PTT, BMP, GGT, LIVP, PHEP, TREP, HIVCMB #### [facility] [employer] [address] [place] [address] Anion gap molar conc11 mmol/LNormal9-17[facility] HospitalComment on above:Performed By: #### CDP, PT, PTT, BMP, GGT, LIVP, PHEP, TREP, HIVCMB #### [facility] [employer] [address] [place] [address] AST enzyme act/vol18 U/LNormal<40[facility] Comment on above:Performed By: #### CDP, PT, PTT, BMP, GGT, LIVP, PHEP, TREP, HIVCMB #### [facility] [employer] [address] [place] [address] Bilirubin.direct mass concmg/dLNormal<0.31[facility] HospitalComment on above:Performed By: #### CDP, PT, PTT, BMP, GGT, LIVP, PHEP, TREP, HIVCMB #### [facility] [employer] [address] [place] [address] Calcium mass conc9.5 mg/dLNormal8.6-10.4[facility] HospitalComment on above:Performed By: #### CDP, PT, PTT, BMP, GGT, LIVP, PHEP, TREP, HIVCMB #### [facility] [employer] [address] [place] [address] Chloride molar miyz896 mmol/YKire98-528MtqchKnox Community HospitalComment on above:Performed By: #### CDP, PT, PTT, BMP, GGT, LIVP, PHEP, TREP, HIVCMB #### [facility] [employer] [address] [place] [address] CO2 molar conc25 mmol/AVetfbj70-01WcpdoKnox Community Hospital Comment on above:Performed By: #### CDP, PT, PTT, BMP, GGT, LIVP, PHEP, TREP, HIVCMB #### [facility] [employer] [address] [place] [address] Creatinine mass conc0.78 mg/dLNormal0.70-1.20[facility] HospitalComment on above:Performed By: #### CDP, PT, PTT, BMP, GGT, LIVP, PHEP, TREP, HIVCMB #### [facility] [employer] [address] [place] [address] GFR, Amer>60Normal>60[facility] HospitalComment on above:Performed By: #### CDP, PT, PTT, BMP, GGT, LIVP, PHEP, TREP, HIVCMB #### [facility] [employer] [address] [place] [address] GFR,non Amer>60Normal>60[facility] Comment on above:Performed By: #### CDP, PT, PTT, BMP, GGT, LIVP, PHEP, TREP, HIVCMB #### [facility] [employer] [address] [place] [address] Glucose mass conc81 mg/zZFfgqhf90-89XdnqgGlendale Research HospitalComment on above:Performed By: #### CDP, PT, PTT, BMP, GGT, LIVP, PHEP, TREP, HIVCMB #### [facility] [employer] [address] [place] [address] Potassium molar conc4.7 mmol/LNormal3.7-5.3[facility] Medical CenterComment on above:Performed By: #### CDP, PT, PTT, BMP, GGT, LIVP, PHEP, TREP, HIVCMB #### [facility] [address] [place] [address] Protein mass conc6.6 g/dLNormal6.4-8.3MGlendale Research HospitalComment on above:Performed By: #### CDP, PT, PTT, BMP, GGT, LIVP, PHEP, TREP, HIVCMB #### [facility] [employer] [address] [place] [address] Sodium molar rxsb428 mmol/ALbmmnv178-306GngugKnox Community HospitalComment on above:Performed By: #### CDP, PT, PTT, BMP, GGT, LIVP, PHEP, TREP, HIVCMB #### [facility] [employer] [address] [place] [address] Urea nitrogen mass conc17 mg/dLNormal6-20[facility] HospitalComment on above:Performed By: #### CDP, PT, PTT, BMP, GGT, LIVP, PHEP, TREP, HIVCMB #### [facility] [address] [place] [address] Staging:NOT REPORTEDNoUniversity Hospitals Portage Medical CenterComment on above:Performed By: #### CDP, PT, PTT, BMP, GGT, LIVP, PHEP, TREP, HIVCMB #### [facility] [employer] [address] [place] [address] HIV Ag/Abon 71-98-0439YZW Ag/AbNONREACTIVEOhioHealth O'Bleness HospitalComment on above:Result Comment: No laboratory evidence of HIV infection. If acute HIV infection is suspected, consider testing for HIV-1 RNA.Performed By: #### CDP, PT, PTT, BMP, GGT, LIVP, PHEP, TREP, HIVCMB #### [facility] [employer] [address] [place] [address] Hepatitis Acute Meera 35-95-4192Vpi A Ab,IgMNONREACTIVENoCleveland Clinic Mercy HospitalComment on above:Performed By: #### CDP, PT, PTT, BMP, GGT, LIVP, PHEP, TREP, HIVCMB #### [address] [address] Hep B Core Ab,IgMNONREDayton VA Medical CenterComment on above:Performed By: #### CDP, PT, PTT, BMP, GGT, LIVP, PHEP, TREP, HIVCMB #### [facility] [employer] [address] [place] [address] Hep B Surf AgNONREDayton VA Medical Center Comment on above:Performed By: #### CDP, PT, PTT, BMP, GGT, LIVP, PHEP, TREP, HIVCMB #### [facility] [employer] [address] [place] [address] Hep C AbREACTIVEAbWilson Street HospitalComment on above:Result Comment: The hepatitis C procedure used in our laboratory is a Chemiluminescent test specific for three recombinant HCV antigens. A negative anti-HCV result indicates that the antibodies to hepatitis C virus are not present at this time. Individuals with reactive anti-HCV should be considered infected and infectious until proven otherwise. Confirmation of all equivocal or reactive results is recommended by ordering HCV RNA by PCR. Results reported to the appropriate Health DepartmentPerformed By: #### CDP, PT, PTT, BMP, GGT, LIVP, PHEP, TREP, HIVCMB #### [address] [address] Lipid Profileon 26-06-7203Ebhkwghgwtq in HDL mass conc58 mg/dL Normal>40MerSharp Coronado HospitalComment on above:Result Comment: HDL Guidelines: <40 Undesirable 40-59 Borderline >59 DesirablePerformed By: #### CDP, PT, PTT, BMP, GGT, LIVP, PHEP, TREP, HIVCMB #### [facility] [place] [address] Cholesterol in LDL mass conc87 mg/dLNormal0-130[facility] HospitalComment on above:Result Comment: LDL Guidelines: <100 Desirable 100-129 Near to/above Desirable 130-159 Borderline >159 Undesirable Direct (measured) LDL and calculated LDL are not interchangeable tests.Performed By: #### CDP, PT, PTT, BMP, GGT, LIVP, PHEP, TREP, HIVCMB #### [employer] [address] [place] [address] Cholesterol mass whma075 mg/dLNormal<200[facility] HospitalComment on above:Result Comment: Cholesterol Guidelines: <200 Desirable 200-240 Borderline >240 UndesirablePerformed By: #### CDP, PT, PTT, BMP, GGT, LIVP, PHEP, TREP, HIVCMB #### [facility] [employer] [address] [place] [address] Cholesterol.total/Cholesterol in HDL mass ratio2.9 {ratio}Normal<5 [facility] HospitalComment on above:Performed By: #### CDP, PT, PTT, BMP, GGT, LIVP, PHEP, TREP, HIVCMB #### [facility] [address] [place] [address] Triglyceride mass vuzg329 mg/dLNormal<150[facility] HospitalComment on above:Result Comment: Triglyceride Guidelines: <150 Desirable 150-199 Borderline 200-499 High >499 Very high Based on AHA Guidelines for fasting triglyceride, February 2012.Performed By: #### CDP, PT, PTT, BMP, GGT, LIVP, PHEP, TREP, HIVCMB #### [employer] [address] [place] [address] Cholesterol in VLDL mass concNOT REPORTEDNormal1-30[facility] HospitalComment on above:Performed By: #### CDP, PT, PTT, BMP, GGT, LIVP, PHEP, TREP, HIVCMB #### [address] [address] T3, Freeon 65-11-5495V5 free mass conc3.09 pg/mLNormal2.02-4.43 [facility] HospitalComment on above:Performed By: #### CDP, PT, PTT, BMP, GGT, LIVP, PHEP, TREP, HIVCMB #### [place] [address] Thyroid Stim. Horm.on 75-48-7540Feuoexpbedh Qn3.28 m[IU]/LNormal 0.30-5.00[facility] HospitalComment on above:Performed By: #### CDP, PT, PTT, BMP, GGT, LIVP, PHEP, TREP, HIVCMB #### [address] [id number] Thyroxine, Freeon 80-53-0941Ugvehnpjb, Free0.91 ng/dLLow0.93-1.70 [facility] HospitalComment on above:Performed By: #### CDP, PT, PTT, BMP, GGT, LIVP, PHEP, TREP, HIVCMB #### [place] [address] Basic Metabolic Profon 03-09-2018(cont.)NormalKnox Community HospitalComment on above:Result Comment: Average GFR for 30-39 years old: 107 mL/min/1.73sq m Chronic Kidney Disease: <60 mL/min/1.73sq m Kidney failure: <15 mL/min/1.73sq m eGFR calculated using average adult body mass. Additional eGFR calculator available at: http://www.Waste2Tricity.Webroot/multiple_crcl_2012.htmPerformed By: #### CDP, PT, PTT, BMP, GGT, LIVP, PHEP, TREP, HIVCMB #### [facility] [employer] [address] [place] [address] Anion gap molar conc12 mmol/LNormal9-17[facility] HospitalComment on above:Performed By: #### CDP, PT, PTT, BMP, GGT, LIVP, PHEP, TREP, HIVCMB #### [address] [address] GFR, Amer>60Normal>60[facility] HospitalComment on above:Performed By: #### CDP, PT, PTT, BMP, GGT, LIVP, PHEP, TREP, HIVCMB #### [facility] [employer] [address] [place] [address] GFR,non Amer>60Normal>60[facility] Comment on above:Performed By: #### CDP, PT, PTT, BMP, GGT, LIVP, PHEP, TREP, HIVCMB #### [facility] [employer] [address] [place] [address] Hepatitis Acute Meera 06-52-9289Idk A Ab,IgMNONREACTIVENormalNR [facility] HospitalComment on above:Result Comment: CORRECTED ON 03/09 AT 0742: PREVIOUSLY REPORTED Sent to reference laboratory. Separate report to follow.Performed By: #### CDP, PT, PTT, BMP, GGT, LIVP, PHEP, TREP, HIVCMB #### [facility] [employer] [address] [place] [address] Liver Profileon 40-19-7910Umkujvz/Globulin mass ratio1.6 {ratio} Normal1.0-2.5[facility] HospitalComment on above:Performed By: #### CDP, PT, PTT, BMP, GGT, LIVP, PHEP, TREP, HIVCMB #### [address] [address] Bilirubin, IndirectCANNOT BE CALCULATEDNormal0.00-1.00[facility] HospitalComment on above:Performed By: #### CDP, PT, PTT, BMP, GGT, LIVP, PHEP, TREP, HIVCMB #### [facility] [address] [place] [address] APTTon 78-97-9318lCKD Coag time (Bld)24.9 vKjpitz28.5-30.5[facility] HospitalComment on above:Performed By: #### CDP, PT, PTT, BMP, GGT, LIVP, PHEP, TREP, HIVCMB #### [facility] [address] [place] [address] Basic Metabolic Profon 48-39-0357Ejjyaqc mass conc9.2 mg/dLNormal 8.6-10.4[facility] HospitalComment on above:Performed By: #### CDP, PT, PTT, BMP, GGT, LIVP, PHEP, TREP, HIVCMB #### [facility] [address] [place] [address] Chloride molar wtyj324 mmol/YIndamf79-712DzzjsKnox Community HospitalComment on above:Performed By: #### CDP, PT, PTT, BMP, GGT, LIVP, PHEP, TREP, HIVCMB #### [facility] [address] [place] [address] CO2 molar conc29 mmol/CGsrnni13-82TbihyKnox Community Hospital Comment on above:Performed By: #### CDP, PT, PTT, BMP, GGT, LIVP, PHEP, TREP, HIVCMB #### [facility] [employer] [address] [place] [address] Creatinine mass conc0.85 mg/dLNormal0.70-1.20[facility] HospitalComment on above:Performed By: #### CDP, PT, PTT, BMP, GGT, LIVP, PHEP, TREP, HIVCMB #### [facility] [employer] [address] [place] [address] Glucose mass zqmg487 mg/sQTnpm60-71Lxnzj [facility] Comment on above:Performed By: #### CDP, PT, PTT, BMP, GGT, LIVP, PHEP, TREP, HIVCMB #### [facility] [employer] [address] [place] [address] Potassium molar conc4.2 mmol/LNormal3.7-5.3[facility] CenterComment on above:Performed By: #### CDP, PT, PTT, BMP, GGT, LIVP, PHEP, TREP, HIVCMB #### [facility] [employer] [address] [place] [address] Sodium molar vasy992 mmol/DQnoc754-747BgcegKnox Community HospitalComment on above:Performed By: #### CDP, PT, PTT, BMP, GGT, LIVP, PHEP, TREP, HIVCMB #### [facility] [employer] [address] [place] [address] Urea nitrogen mass conc17 mg/dLNormal6-20[facility] HospitalComment on above:Performed By: #### CDP, PT, PTT, BMP, GGT, LIVP, PHEP, TREP, HIVCMB #### [facility] [employer] [address] [place] [address] BUN/CRE RatioNOT REPORTEDNormal9-20[facility] Comment on above:Performed By: #### CDP, PT, PTT, BMP, GGT, LIVP, PHEP, TREP, HIVCMB #### [facility] [employer] [address] [place] [address] Staging:NOT REPORTEDNormalKnox Community HospitalComment on above:Performed By: #### CDP, PT, PTT, BMP, GGT, LIVP, PHEP, TREP, HIVCMB #### [address] [address] CBC with Diffon 62-51-5417Bxd. Basophil0.05 k/uLNormal0.00-0.20 [facility] HospitalComment on above:Performed By: #### CDP, PT, PTT, BMP, GGT, LIVP, PHEP, TREP, HIVCMB #### [place] [address] Abs.Imm.Granulocyte0.03 k/uLNormal0.00-0.30[facility] HospitalComment on above:Performed By: #### CDP, PT, PTT, BMP, GGT, LIVP, PHEP, TREP, HIVCMB #### [place] [address] Abs.Neutrophil (Seg)7.74 k/uLNormal1.50-8.10[facility] HospitalComment on above:Performed By: #### CDP, PT, PTT, BMP, GGT, LIVP, PHEP, TREP, HIVCMB #### [place] [address] Basophils/100 WBC (Bld)1 %Normal0-2MGl[facility] Hospital Comment on above:Performed By: #### CDP, PT, PTT, BMP, GGT, LIVP, PHEP, TREP, HIVCMB #### [place] [address] Eosinophils #/vol (Bld)0.21 10*3/uLNormal0.00-0.44[facility] HospitalComment on above:Performed By: #### CDP, PT, PTT, BMP, GGT, LIVP, PHEP, TREP, HIVCMB #### [place] [address] Eosinophils/100 WBC (Bld)2 %Normal1-4[facility] HospitalComment on above:Performed By: #### CDP, PT, PTT, BMP, GGT, LIVP, PHEP, TREP, HIVCMB #### [facility] [employer] [address] [place] [address] Erythrocyte distribution width Ratio (RBC)13.1 %Ujsrny22.8-14.4 [facility] HospitalComment on above:Performed By: #### CDP, PT, PTT, BMP, GGT, LIVP, PHEP, TREP, HIVCMB #### [facility] [employer] [address] [place] [address] Hematocrit Volume Fraction (Bld)42.3 %Gmbrhe13.7-50.3MGlendale Research HospitalComment on above:Performed By: #### CDP, PT, PTT, BMP, GGT, LIVP, PHEP, TREP, HIVCMB #### [facility] [employer] [address] [place] [address] Hemoglobin mass conc (Bld)13.6 g/sFEmwqrn25.0-17.0[facility] HospitalComment on above:Performed By: #### CDP, PT, PTT, BMP, GGT, LIVP, PHEP, TREP, HIVCMB #### [facility] [employer] [address] [place] [address] Immature granulocytes #/vol (Bld)0 %Fsiqry7TwodxKnox Community HospitalComment on above:Performed By: #### CDP, PT, PTT, BMP, GGT, LIVP, PHEP, TREP, HIVCMB #### [place] [address] Lymphocytes #/vol (Bld)1.95 10*3/uLNormal1.10-3.70[facility] HospitalComment on above:Performed By: #### CDP, PT, PTT, BMP, GGT, LIVP, PHEP, TREP, HIVCMB #### [facility] [employer] [address] [place] [address] Lymphocytes/100 WBC (Bld)19 %Bbe71-06LgvigKnox Community HospitalComment on above:Performed By: #### CDP, PT, PTT, BMP, GGT, LIVP, PHEP, TREP, HIVCMB #### [facility] [employer] [address] [place] [address] MCH Entitic mass (RBC)28.2 bmFovnuo44.2-33.5[facility] HospitalComment on above:Performed By: #### CDP, PT, PTT, BMP, GGT, LIVP, PHEP, TREP, HIVCMB #### [facility] [employer] [address] [place] [address] MCHC mass conc (RBC)32.2 g/cWItynfu54.4-34.8[facility] HospitalComment on above:Performed By: #### CDP, PT, PTT, BMP, GGT, LIVP, PHEP, TREP, HIVCMB #### [facility] [employer] [address] [place] [address] MCV Entitic volume (RBC)87.8 mXBkjdri29.6-102.9[facility] HospitalComment on above:Performed By: #### CDP, PT, PTT, BMP, GGT, LIVP, PHEP, TREP, HIVCMB #### [facility] [employer] [address] [place] [address] Monocytes #/vol (Bld)0.56 10*3/uLNormal0.10-1.20[facility] HospitalComment on above:Performed By: #### CDP, PT, PTT, BMP, GGT, LIVP, PHEP, TREP, HIVCMB #### [facility] [employer] [address] [place] [address] Monocytes/100 WBC (Bld)5 %Normal3-12[facility] HospitalComment on above:Performed By: #### CDP, PT, PTT, BMP, GGT, LIVP, PHEP, TREP, HIVCMB #### [facility] [address] [place] [address] Neutrophil (Seg)73 %Mpmv26-40MlawyKnox Community Hospital Comment on above:Performed By: #### CDP, PT, PTT, BMP, GGT, LIVP, PHEP, TREP, HIVCMB #### [facility] [address] [place] [address] NRBC Automated0.0 per 100 WBCNormal0.0[facility] HospitalComment on above:Performed By: #### CDP, PT, PTT, BMP, GGT, LIVP, PHEP, TREP, HIVCMB #### [facility] [address] [place] [address] Platelet mean volume Entitic volume (Bld)10.7 fLNormal8.1-13.5[facility] HospitalComment on above:Performed By: #### CDP, PT, PTT, BMP, GGT, LIVP, PHEP, TREP, HIVCMB #### [facility] [employer] [address] [place] [address] Platelets #/vol (Bld)192 10*3/mLTflmzm786-577VszhfSharp Coronado HospitalComment on above:Performed By: #### CDP, PT, PTT, BMP, GGT, LIVP, PHEP, TREP, HIVCMB #### [facility] [employer] [address] [place] [address]121 RBC #/vol (Bld)4.82 10*6/uLNormal4.21-5.77[facility] HospitalComment on above:Performed By: #### CDP, PT, PTT, BMP, GGT, LIVP, PHEP, TREP, HIVCMB #### [facility] [address] [place] [address] WBC #/vol (Bld)10.5 10*3/uLNormal3.5-11.3[facility] Medical CenterComment on above:Performed By: #### CDP, PT, PTT, BMP, GGT, LIVP, PHEP, TREP, HIVCMB #### [address] [address] Auto Diff PerformedNOT REPORTEDNormDelaware County HospitalComment on above:Performed By: #### CDP, PT, PTT, BMP, GGT, LIVP, PHEP, TREP, HIVCMB #### [address] [address] Platelets #/vol (Bld)NOT REPORTEDMercy Health Allen HospitalComment on above:Performed By: #### CDP, PT, PTT, BMP, GGT, LIVP, PHEP, TREP, HIVCMB #### [facility] [employer] [address] [place] [address] RBC morphology finding Nom (Bld)NOT REPORTEDMercy Health Allen HospitalComment on above:Performed By: #### CDP, PT, PTT, BMP, GGT, LIVP, PHEP, TREP, HIVCMB #### [facility] [employer] [address] [place] [address] WBC MorphologyNOT REPORTEDMercy Health Allen Hospital Comment on above:Performed By: #### CDP, PT, PTT, BMP, GGT, LIVP, PHEP, TREP, HIVCMB #### [address] [address] Gammaglutamyl Transon 70-17-7333Ventfbz enzyme act/vol47 U/LNormal MerSharp Coronado HospitalComment on above:Performed By: #### CDP, PT, PTT, BMP, GGT, LIVP, PHEP, TREP, HIVCMB #### [address] [address] HIV Ag/Abon 67-42-3510XES Ag/AbNONREDayton VA Medical CenterComment on above:Result Comment: No laboratory evidence of HIV infection. If acute HIV infection is suspected, consider testing for HIV-1 RNA.Performed By: #### CDP, PT, PTT, BMP, GGT, LIVP, PHEP, TREP, HIVCMB #### [facility] [employer] [address] [place] [address] Hepatitis Acute Meera 53-43-7449Jhf B Core Ab,IgMNONREACTIVEPaulding County HospitalComment on above:Performed By: #### CDP, PT, PTT, BMP, GGT, LIVP, PHEP, TREP, HIVCMB #### [address] [address] Hep B Surf AgNONSamaritan Pacific Communities Hospital Comment on above:Performed By: #### CDP, PT, PTT, BMP, GGT, LIVP, PHEP, TREP, HIVCMB #### [address] [address] Hep C AbREACTIVEAbWilson Street HospitalComment on above:Result Comment: The hepatitis C procedure used in our laboratory is a Chemiluminescent test specific for three recombinant HCV antigens. A negative anti-HCV result indicates that the antibodies to hepatitis C virus are not present at this time. Individuals with reactive anti-HCV should be considered infected and infectious until proven otherwise. Confirmation of all equivocal or reactive results is recommended by ordering HCV RNA by PCR. Results reported to the appropriate Health DepartmentPerformed By: #### CDP, PT, PTT, BMP, GGT, LIVP, PHEP, TREP, HIVCMB #### [address] [address] Liver Profileon 93-59-1668Oazyqcmel Ql (U)<0.10Low0.3-1.2[facility] CenterComment on above:Performed By: #### CDP, PT, PTT, BMP, GGT, LIVP, PHEP, TREP, HIVCMB #### [address] [address] Albumin mass conc4.1 g/dLNormal3.5-5.2MGlendale Research HospitalComment on above:Performed By: #### CDP, PT, PTT, BMP, GGT, LIVP, PHEP, TREP, HIVCMB #### [place] [address] Alkaline Phos70 U/GXnxell70-325NqvoqKnox Community Hospital Comment on above:Performed By: #### CDP, PT, PTT, BMP, GGT, LIVP, PHEP, TREP, HIVCMB #### [place] [address] ALT enzyme act/vol38 U/LNormal5-41[facility] Comment on above:Performed By: #### CDP, PT, PTT, BMP, GGT, LIVP, PHEP, TREP, HIVCMB #### [place] [address] AST enzyme act/vol23 U/LNormal<40[facility] Comment on above:Performed By: #### CDP, PT, PTT, BMP, GGT, LIVP, PHEP, TREP, HIVCMB #### [place] [address] Bilirubin.direct mass concmg/dLNormal<0.31[facility] HospitalComment on above:Performed By: #### CDP, PT, PTT, BMP, GGT, LIVP, PHEP, TREP, HIVCMB #### [place] [address] Protein mass conc6.7 g/dLNormal6.4-8.3[facility] Medical CenterComment on above:Performed By: #### CDP, PT, PTT, BMP, GGT, LIVP, PHEP, TREP, HIVCMB #### [employer] [address] [place] [address] Globulin mass conc (S)NOT REPORTEDNormal1.5-3.8[facility] HospitalComment on above:Performed By: #### CDP, PT, PTT, BMP, GGT, LIVP, PHEP, TREP, HIVCMB #### [facility] [address] [place] [address] PTon 84-97-2503DST Coag RelTime (PPP)0.9 {INR}NormalKnox Community HospitalComment on above:Result Comment: Therapeutic Range: Moderate Anticoagulant Intensity: INR = 2.0-3.0 High Anticoagulant Intensity: INR = 2.5-3.5Performed By: #### CDP, PT, PTT, BMP, GGT, LIVP, PHEP, TREP, HIVCMB #### [facility] [address] [place] [address] Prothrombin time (PT) Coag time (PPP)9.4 sNormal9.0-12.0Kn[facility] HospitalComment on above:Performed By: #### CDP, PT, PTT, BMP, GGT, LIVP, PHEP, TREP, HIVCMB #### [employer] [address] [place] [address] T.pallidum Ab Screenon 03-08-2018T.pallidum Ab ScreenNONREACTIVE NormalNRKnox Community HospitalComment on above:Result Comment: T. pallidum antibodies are not detected. There is no serological evidence of infection with T. pallidum (early primary syphilis cannot be excluded). Retest in 2-4 weeks if syphilis is clinically suspect.Performed By: #### CDP, PT, PTT, BMP, GGT, LIVP, PHEP, TREP, HIVCMB #### [employer] [address] [place], [place] [address], [place] [address] Vital Signs Date TimeVital SignValuePerforming JjhsrbpgrZfmztykd17-13-6693 15:14-0400Blood Pressure LocationAmos MANCIA [address] [place], [place] 6186610-20-2024 15:14-0400Body temperature 97.88 [degF]Amos MANCIA [address] [place], [place] 6186610-20-2024 15:14-0400Diastolic blood ryvozggr22 mm[Hg]Amos MANCIA [address] [place], [place] 6186610-20-2024 15:14-0400Heart rate66 /min Amos MANCIA [address] [place], [place] 6186610-20-2024 15:14-0400Respiratory rate 16 /minAmos MANCIA [address] [place], [place] 6186610-20-2024 15:14-3120EwC7% (BldA) [Mass fraction]97 %Amos MANCIA [address] [place], [place] 6186610-20-2024 15:14-0400Systolic blood gjermjmy718 mm[Hg]Amos MANCIA [address] [place], [place] 6186606-23-2023 15:00-0400Diastolic blood afhuxrot11 mm[Hg]Toni Messer [facility]06-23-2023 15:00-0400Heart rate81 /minToni Messer [facility]06-23-2023 15:00-0400Mean blood kkerpuox82 mm[Hg]Toni Messer [facility]06-23-2023 15:00-0400 Respiratory rate18 /minToni Messer [facility]06-23-2023 15:00-0400 Systolic blood ujhxtier947 mm[Hg]Toni Messer [address] [place], [place] 1217006-23-2023 13:30-0400 Diastolic blood aqvpufmh57 mm[Hg]Toni Messer [address] [place], [place] 1217006-23-2023 13:30-0400Heart lsmc168 /minJodevon Messer [address] [place], [place] 1217006-23-2023 13:30-0400Mean blood jhwxiykv55 mm[Hg]Toni Messer [address]06-23-2023 13:30-0400 Respiratory rate20 /minJodevon Messer [address] [place], [place] 1217006-23-2023 13:30-9429IdK7% (BldA) [Mass fraction]97 %Toni Messer [address] [place], [place] 1217006-23-2023 13:30-0400 Systolic blood mm[Hg]Toni Messer [address]06-23-2023 12:15-0400 Diastolic blood efgplzwz51 mm[Hg]Toni Messer [address] [place], [place] 1217006-23-2023 12:15-0400Heart wlzu600 /minToni Messer [address] [place], [place] 1217006-23-2023 12:15-0400Mean blood cxsqiinf76 mm[Hg]Toni Messer [address] [place], [place] 1217006-23-2023 12:15-0400 Respiratory rate20 /minJodevon Messer [address] [place], [place] 1217006-23-2023 12:15-5530MuB8% (BldA) [Mass fraction]98 %Toni Messer [address] [place], [place] 1217006-23-2023 12:15-0400 Systolic blood lqpzvidu058 mm[Hg]Toni Messer [facility]06-23-2023 10:47-0400gluc 108 mg/dLToni Messer [facility]06-23-2023 10:47-0400gluc Toni Messer [facility]06-23-2023 10:37-0400Body npufposnbcy12.42 [degF]Toni Messer [facility] Encounters Encounter DateEncounter TypeCare ProviderFacilityStart: 12-25-2024 End: 93-24-6479Cjxgsoqbe identifierM[facility]field [facility] [place] [facility] Work Phone: [facility]: 12-25-2024 ambulatoryAgnesian Healthcareariel Be [facility] DEPARTMENTStart: 03-18-2024 End: 55-66-8226nxxvbrzlxsGwhpq A LYNCHFacility: JailStart: 03-18-2024 End: 30-12-5086Bwo-SiteBrian A MANCIA [facility] Start: 02-01-2024 End: 80-82-7948jsbqtzkqnzGaqxg A LYNCHFacility: JailStart: 05-16-2023 ambulatoryP. [facility]: 24-96-0473lifnjyozmzX. [facility]: 11-19-2022 End: 49-57-3886Qgpiozqns department patient visitJodevon Messer [facility] Start: 04-25-2020 End: 40-24-2826Tmvheyh encounter procedureNONE LISTED REQUESTFacility:S2Scyaz: 08-09-2018 End: 60-03-0513Frnbnvq encounter procedureJAOC CARTERThe Christ Hospitaltart: 07-16-2018 End: 69-57-6487Citoeaazv department patient visitWIPILAR KREBSAdams County Hospitaltart: 07-03-2018 End: 43-85-1327Znzfiir encounter procedureKHALILETICIA DIAZLluviaSanta Marta Hospitaltart: 03-08-2018 End: 16-04-6131Tyqadez encounter procedureLAWALE [facility] Procedures DateProcedureProcedure DetailPerforming ClinicianStart: 85-73-1642Tfrgd count complete auto&auto difrntl wbcLAURI LEVISONStart: 95-57-2735Gqdgvcaecbkec metabolic panelLAURI LEVISONStart: 35-08-1007Fnjxu of free thyroxineLAURI LEVISONStart: 94-74-7699Admhh of thyroid stimulating hormone tshLAURI LEVISON Start: 41-90-9257Bqdjm count complete auto&auto difrntl wbcLAURI LEVISONStart: 45-39-4990BFWO METABOLIC W/ BILI PROFILELAURI LEVISONStart: 47-34-5508TQXUPVAKT PANEL, ACUTELAURI LEVISONStart: 74-78-2317DHE SCREENLAURI LEVISONStart: 37-58-0541Dwskp panelLAURI LEVISONStart: 49-73-9811E8 free mass concLAURI LEVISONStart: 28-21-0857Af cell mediated antign respnse gamma interferonLAURI LEVISONStart: 42-57-4831Pazqz metabolic panel calcium totalLAURI LEVISONStart: 46-95-8473Qsbqn count complete auto&auto difrntl wbcLAURI LEVISONStart: 98-87-0856WOFSC GTLAURI LEVISONStart: 50-24-0925Vnlvkdx function panelLAURI LEVISONStart: 42-89-4467FKEETSQHO PANEL, ACUTELAURI LEVISONStart: 91-36-0360CCZ SCREENLAURI LEVISONStart: 63-00-9561Inltnzkyjkl timeLAURI LEVISONStart: 03-08-2018T. PALLIDUM ABLAURI LEVISONStart: 79-32-9796Jmvgaekagnfigq time partial plasma/whole bloodLAURI LEVISON Plan of Treatment DateCare ActivityDetailAuthorStart: 49-28-7468RquaDenver Health Medical Center Work Phone: Immunizations Immunization DateImmunizationNotesCare QnaokomcQvabpxgp63-57-9866pucmrmrgw A vaccine, adult darlingBrsami MANCIA [facility] CenterComment on above:Result Comment: 2024-03-18: [employer] Payers DatePayer CategoryPayerPolicy [id number] [id number] [id number] [id number] [id number] [id number] [id number] 2.16.840.1.293614.3.57[id number] 2.16.840.1.775323.3.57[id number] [id number] Social History DateTypeDetailFacilityStart: 08-01-3207KwcuasiIqghockkvhSbohud - [facility] Medical CenterComment on above:daily -- doesnt want helpTobacco smoking statusNo Smoking Status EnteredAvita Health System Galion Hospitalex Assigned At BirthMalGreen Cross Hospitaltart: 13-39-1096Jhudncb smoking statusHeavy tobacco smoker (finding)[facility] HospitalilStart: 55-61-8519Gkbuvgr smoking status NHISUnknown if ever smokedSt. Anthony's Hospitalex Assigned At [facility] Eastexual OrientationStraight or heterosexualDenver Health Medical Center Work Phone: Start: 42-25-0394Zhthtz identityMaimonides Medical Center Functional Status LkyfCjtwluwjwmVnmfsfLunpfwur85-87-6097Fpohtsbojw StatusN/Huyen [facility] 60-72-7258Onquoqtrme StatusWVUMedicine [facility] Clinical Notes 11-19-2022 to 12-25-2024 Note Date & GejkSseeXxmaldbh06-17-3181 Evaluation note* Type Assessment Date assessment Other specified counseling [facility] Work Phone: [phone] Hospital Discharge instructions Patient Education 11/19/2022 14:44:03 Substance Use Disorder Substance Use Disorder Substance use disorder occurs when a person's repeated use of drugs or alcohol interferes with the ability to be productive. This disorder can cause problems with mental and physical health. It can affect your ability to have healthy relationships, and it can keep you from being able to meet your responsibilities at work, home, or school. It can also lead to addiction, which is a condition in which you cannot stop using the substance consistently for a period of time. Addiction changes the way the brain works. Because of these changes, addiction is a chronic condition. Substance use disorder can be mild, moderate, or severe. Some commonly misused substances that can lead to this disorder include: Alcohol. Tobacco. Marijuana. Stimulants, such as cocaine and methamphetamine. Hallucinogens, such as LSD and PCP. Opioids, such as some prescription pain medicines and heroin. What are the causes? This condition may develop due to many complex social, psychological, or physical reasons, such as: Stress. Abuse. Peer pressure. Anxiety or depression. What increases the risk? This condition is more likely to develop in people who: Use substances to cope with stress. Have been abused. Have a mental health disorder, such as depression. Have a family history of substance use disorder. What are the signs or symptoms? Symptoms of this condition include: Using the substance for longer periods of time or at a higher dosage than what is normal or intended. Having a lasting desire to use the substance. Being unable to slow down or stop the use of the substance. Spending an abnormal amount of time getting the substance, using the substance, or recovering from using the substance. Using the substance in a way that interferes with work, school, social activities, and personal relationships. Using the substance even after having negative consequences, such as: ?Health problems. ?Legal or financial troubles. ?Job loss. ?Relationship problems. Needing more and more of the substance to get the same effect (developing tolerance). Experiencing unpleasant symptoms if you do not use the substance (withdrawal). Using the substance to avoid withdrawal symptoms. How is this diagnosed? This condition may be diagnosed based on: A physical exam. Your history of substance use. Your symptoms. This includes: ?How substance use affects your life. ?Changes in personality, behaviors, and mood. ?Having at least two symptoms of substance use disorder within a 12-month period. ?Health issues related to substance use, such as liver damage, shortness of breath, fatigue, cough,or heart problems. Blood or urine tests to screen for alcohol and drugs. How is this treated? This condition may be treated by: Stopping substance use safely. This may require taking medicines and being closely monitored for several days. Taking part in group and individual counseling from mental health providers who help people with substance use disorder. Staying at a live-in (residential) treatment center for several days or weeks. Attending daily counseling sessions at a treatment center. Taking medicine as told by your health care provider: ?To ease symptoms and prevent complications during withdrawal. ?To treat other mental health issues, such as depression or anxiety. ?To block cravings by causing the same effects as the substance. ?To block the effects of the substance or replace good sensations with unpleasant ones. Participating in a support group to share your experience with others who are going through the same thing. These groups are an important part of long-term recovery for many people. Recovery can be a long process. Many people who undergo treatment start using the substance again after stopping (relapse). If you relapse, that does not mean that treatment will not work. Follow these instructions at home: Take eday-lvr-qkcxvhm and prescription medicines only as told by your health care provider. Do not use any drugs or alcohol. Avoid temptations or triggers that you associate with your use of the substance. Learn and practice techniques for managing stress. Have a plan for vulnerable moments. Get phone numbers of people who are willing to help and who arecommitted to your recovery. Attend support groups on a regular basis. These groups include 12-step programs like Alcoholics Anonymous and Narcotics Anonymous. Keep all follow-up visits. This is important. This includes continuing to work with therapists and support groups. Where to find more information Substance Abuse and Mental Health Services Administration (SAMHSA): www.samhsa.gov National Rueter on Mental Illness (MAURO): www.mauro.org Contact a health care provider if: You cannot take your medicines as told. Your symptoms get worse. You have trouble resisting the urge to use drugs or alcohol. Get help right away if: You relapse. You think that you may have taken too much of a drug. The National Poison Control Center hotline yi3-438-6831-145.187.7083. You have signs of an overdose. Symptoms include: ?Chest pain. ?Confusion. ?Sleepiness or difficulty staying awake. ?Slowed breathing. ?Nausea or vomiting. ?A seizure. You have serious thoughts about hurting yourself or someone else. Drug overdose is an emergency. Do not wait to see if the symptoms will go away. Get medical help right away. Call your local emergency services (728 in the [place] Do not drive yourself to the hospital. If you ever feel like you may hurt yourself or others, or have thoughts about taking your own life,get help right away. Go to your nearest emergency department or: Call your local emergency services (816 in the [place] Call a suicide crisis helpline, such as the National Suicide Prevention Lifeline at or 371 in the [place] This is open 24 hours a day in the [place] Text the Crisis Text Line at 442699 (in the [place] Summary Substance use disorder occurs when a person's repeated use of drugs or alcohol interferes with the ability to be productive. Taking part in group and individual counseling from mental health providers is a common treatment for people with substance use disorder. Recovery can be a long process. Many people who undergo treatment start using the substance again after stopping (relapse). A relapse does not mean that treatment will not work. Attend support groups such as Alcoholics Anonymous and Narcotics Anonymous. These groups are an important part of long-term recovery for many people. This information is not intended to replace advice given to you by your health care provider. Make sure you discuss any questions you have with your health care provider. Document Revised: 12/09/2021 Document Reviewed: 09/11/2021 [employer] Patient Education 2022 [employer]. 11/19/2022 14:44:03 Nonspecific Chest Pain, Adult Nonspecific Chest Pain, Adult Chest pain is an uncomfortable, tight, or painful feeling in the chest. The pain can feel like a crushing, aching, or squeezing pressure. A person can feel a burning or tingling sensation. Chest paincan also be felt in your back, neck, jaw, shoulder, or arm. This pain can be worse when you move, sneeze, or take a deep breath. Chest pain can be caused by a condition that is life-threatening. This must be treated right away. It can also be caused by something that is not life- threatening. If you have chest pain, it can be hard to know the difference, so it is important to get help right away to make sure that you do not have a serious condition. Some life-threatening causes of chest pain include: Heart attack. A tear in the body's main blood vessel (aortic dissection). Inflammation around your heart (pericarditis). A problem in the lungs, such as a blood clot (pulmonary embolism) or a collapsed lung (pneumothorax). Some non life-threatening causes of chest pain include: Heartburn. Anxiety or stress. Damage to the bones, muscles, and cartilage that make up your chest wall. Pneumonia or bronchitis. Shingles infection (varicella-zoster virus). Your chest pain may come and go. It may also be constant. Your health care provider will do tests and other studies to find the cause of your pain. Treatment will depend on the cause of your chest pain. Follow these instructions at home: Medicines Take [id number] and prescription medicines only as told by your health care provider. If you were prescribed an antibiotic medicine, take it as told by your health care provider. Do notstop taking the antibiotic even if you start to feel better. Activity Avoid any activities that cause chest pain. Do not lift anything that is heavier than 10 lb (4.5 kg), or the limit that you are told, until your health care provider says that it is safe. Rest as directed by your health care provider. Return to your normal activities only as told by your health care provider. Ask your health care provider what activities are safe for you. Lifestyle Do not use any products that contain nicotine or tobacco, such as cigarettes, e- cigarettes, and chewing tobacco. If you need help quitting, ask your health care provider. Do not drink alcohol. Make healthy lifestyle changes as recommended. These may include: ?Getting regular exercise. Ask your health care provider to suggest some exercises that are safe for you. ?Eating a heart-healthy diet. This includes plenty of fresh fruits and vegetables, whole grains, low-fat (lean) protein, and low-fat dairy products. A dietitian can help you find healthy eating options. ?Maintaining a healthy weight. ?Managing any other health conditions you may have, such as high blood pressure (hypertension) or diabetes. ?Reducing stress, such as with yoga or relaxation techniques. General instructions Pay attention to any changes in your symptoms. It is up to you to get the results of any tests that were done. Ask your health care provider, or the department that is doing the tests, when your results will be ready. Keep all follow-up visits as told by your health care provider. This is important. You may be asked to go for further testing if your chest pain does not go away. Contact a health care provider if: Your chest pain does not go away. You feel depressed. You have a fever. You notice changes in your symptoms or develop new symptoms. Get help right away if: Your chest pain gets worse. You have a cough that gets worse, or you cough up blood. You have severe pain in your abdomen. You faint. You have sudden, unexplained chest discomfort. You have sudden, unexplained discomfort in your arms, back, neck, or jaw. You have shortness of breath at any time. You suddenly start to sweat, or your skin gets clammy. You feel nausea or you vomit. You suddenly feel lightheaded or dizzy. You have severe weakness, or unexplained weakness or fatigue. Your heart begins to beat quickly, or it feels like it is skipping beats. These symptoms may represent a serious problem that is an emergency. Do not wait to see if the symptoms will go away. Get medical help right away. Call your local emergency services (911 in the [place] Do not drive yourself to the hospital. Summary Chest pain can be caused by a condition that is serious and requires urgent treatment. It may also be caused by something that is not life-threatening. Your health care provider may do lab tests and other studies to find the cause of your pain. Follow your health care provider's instructions on taking medicines, making lifestyle changes, and getting emergency treatment if symptoms become worse. Keep all follow-up visits as told by your health care provider. This includes visits for any further testing if your chest pain does not go away. This information is not intended to replace advice given to you by your health care provider. Make sure you discuss any questions you have with your health care provider. Document Revised: 07/30/2021 Document Reviewed: 07/30/2021 [employer] Patient Education 2022 [employer]. Follow Up Care 11/19/2022 10:34:01 With:Celeste Lyles Address: [facility] [address] , [facility] [address] [place] [address]- [facility] (1) When:11/22/2022 14:44:00 With:XXXX NONE Address: [place] When:Within 3 Day(s) [facility]06-23-2023 Evaluation + Plan noteExtracted from: Title:ED NoteAuthor:AydeToni shirley DODate:11/19/22 Chest pain (R07.9: Chest katrina n, unspecified) Polysubstance abuse (F19.10: Other psychoactive substance abuse, uncomplicated) Orders: clonidine, 0.1 mg = 1 tab(s), Oral, BID, X 3 day(s), # 6 tab(s), Refills(s) 0 hydrOXYzine, 25 mg = 1 tab(s), Oral, QID, X 3 day(s), # 12 tab(s), Refills(s) 0 Sodium Chloride 0.9% intravenous solution 1,000 mL, 1,000 mL, IV, 1,000 mL/hr, STAT, Start date 11/19/22 10:44:00 EDT, 1 hour(s), Total volume (mL): 1,000 Automated Diff Basic Metabolic Panel Capillary Glucose POC CBC w/ Auto Diff Creatine Kinase CT Head or Brain w/o Contrast D-Dimer ECG 12 Lead Adult ED Cardiac Monitoring eGFR Extra SST Tube Hepatic Function Panel Lipase Level Oxygen Saturation Oxygen Therapy PT & PTT Saline Lock Insert Troponin Troponin 0 Hr. XR Chest [facility] Clinical Note Date No Information [facility] Work Phone: Discharge summary* Clinical Note Date No Information [facility] Work Phone: History and physical note* Clinical Note Date No Information [facility] Work Phone: History of Past illness Narrative* Condition Effective Dates (start - stop) O utcome No Information [facility] Work Phone: History of Present illness Narrative* Encounter Date Complaint History Of Prese nt Illness No Information [facility] Work Phone: Hospital course Narrative No data available for this section [facility] No data available for this section [facility] Instructions* Date Instruction Additional Infor mation No Information [facility] Work Phone: Progress note No data available for this section [facility] Clinical Note Date No Information [facility] Work Phone: Reason for referral (narrative)* Reason For Referral No Information [facility] Work Phone: Review of systems Narrative - Reported* System Pos/Neg Findings No Information [facility] Work Phone: Summary Purpose Family History Family Member Type Diagnosis Age At Onset No Information Advance Directives Directive Yes / No Effective Date File Name No Information Additional Source Comments (unrecognized sect ion and content) No Status Records FoundNo Status Records FoundNo Status Records FoundNo Status Records FoundNo Status Records FoundNo Status Records Found INFORMATION SOURCE (unrecogn ized section and content) DATE CREATED AUTHOR 08/11/2018 [facility] DATE CREATED AUTHOR AUTHOR'S ORGANIZ ATION 05/01/[address] [facility] DATE CREATED AUTHOR AUTHOR'S ORGANIZ ATION 07/17/2021 [facility] DATE CREATED AUTHOR AUTHOR'S ORGANIZ ATION 05/21/2023 [facility] DATE CREATED AUTHOR AUTHOR'S ORGANIZ ATION 03/23/2024 [facility] DATE CREATED AUTHOR AUTHOR'S ORGANIZ ATION 12/27/2024 [facility] FOR RECORDS PERTAINING TO PATIENTS WHO ARE OR HAVE BEEN ENROLLED IN A CHEMICAL DEPENDENCY/SUBSTANCEABUSE PROGRAM, SOME INFORMATION MAY BE OMITTED. This clinical summary was aggregated from multiple sources. Caution should be exercised in using it in the provision of clinical care. This summary normalizes information from multiple sources, and as a consequence, information in this document may materially change the coding, format and clinical context of patient data. In addition, data may be omitted in some cases. CLINICAL DECISIONS SHOULD BE BASED ON THE PRIMARY CLINICAL RECORDS. [employer] provides no warranty or guarantee of the accuracy or completeness of information in this document.
--- OUTSIDE RECORDS SUMMARY | 2025-03-26 18:38 | XMS_ITS | Clinical Summary ---
Author Organization [facility] Address [address] [place] [address] Care Team Providers Care Economic Developer Name Role Phone Unavailable Primary Care Provider Unavailabl e Source Comments PLEASE NOTE, if this patient is a minor, it may be UNLAWFUL to discuss sensitive information that is contained in these records (such as FAMILY PLANNING, MENTAL HEALTH or SUBSTANCE ABUSE) with the minor patient's parent or other person without the patient's specific authorization.[facility] Allergies Active AllergyReactionsCriticalityNoted KexcHqnaocduNbbqpwkhgvp97/24/2025 Medications MedicationSigDispense QuantityRefillsLast FilledStart DateEnd DateStatus methadone HCl (METHADONE ORAL) Take by mouth.Active glecaprevir-pibrentasvir (MAVYRET) 100-40 mg tab Indications:Chronic hepatitis C without hepatic comaTake 3 Tablets by mouth daily for 56 days 3 tablets orally daily x 8 weeks Take all 3 tablets at same time, after dinner with glass of water. Call for blood redraw 4 wks after last pill. [phone]. 84 Tablet 5Active Active Problems No known active problems Encounters DateTypeDepartmentCare HemlNvvvduuimyi66/09/2025Interim Notes [facility] [address] [phone] Corie Alves 02/28/2025Results Follow-Up [facility] [address] [place] [address] Augusta Elizabeth CRNP 02/27/2025Interim Notes [facility] Department [address] [place] [phone] Brady Ariza 02/26/2025Telemedicine Visit [facility] [address] [place] [phone] Augusta Elizabeth CRNP 02/20/2025 9:15 PM EDTOffice Visit [facility] [address] [place] [address] Augusta Elizabeth CRNP from Last 3 Months Social History Tobacco UseTypesPacks/DayYears UsedDateSmoking Tobacco: Never AssessedSex and Gender InformationValueDate RecordedSex Assigned at NurotMfnw67/24/2025 6:08 PM PDTLegal OcqCelw04/04/2013 10:55 PM PSTGender SfxpkbwhCdoo80/24/2025 6:08 PM PDT Sexual FbserupwqqeTmrxwodz45/24/2025 6:08 PM PDT Last Filed Vital Signs Vital SignReadingTime TakenCommentsBlood Lmdfxnsq050/77002/20/2025 9:13 PM EDT Smfdy901202/20/2025 9:13 PM FVZXytxovmksvc57.4 ??C (97.6 ??F)02/20/2025 9:13 PM EDTRespiratory Scoi401002/20/2025 9:13 PM EDTOxygen Tpawohjvfi23%02/20/2025 9:13 PM EDTInhaled Oxygen Concentration--Xryhba11.5 kg (140 lb)02/20/2025 9:13 PM EDT Wosorx935.1 cm (5' 5 )02/20/2025 9:13 PM EDTBody Mass Index23.309 9:13 PM EDT Plan of Treatment Health MaintenanceDue DateLast DoneCommentsAnxiety Rrxpckkjz1981Diabetes Uysegfbde1981Lipid Wtbpvwgfr1981Tobacco Swemstdaf1981Imm- Pneumococcal (1 of 2 - PCV)2000Imm-HPV (1 - 3-dose SCDM series)2008 Alcohol and Drug Rjwppn3605/30/2024Depression Annual Emnfay9205/30/20246978Bgn-QVGWR-57 ( - season)2025Imm-Influenza (#1)2025Hypertension Screening (#1)02/20/2026STI Hehnxszwvc35Imm-DTaP/Tdap/Td (2 - Td or Tdap)9007/16/2018HIV RdogsccqxFxgpvgmeq23/25/2025Imm-Hepatitis B Discontinued Procedures Procedure NamePriorityDate/TimeAssociated DiagnosisCommentsMEDICATIONS SCANNED MXLXOIFBRcxtfqn03/01/2025 4:34 PM EDTMEDICATIONS SCANNED DOCUMENTRoutine 02/27/2025 12:37 PM EDTNFCT AGENT GENOTYPE LULU NUCLEIC ACD HEP C VIRUSRoutine 02/21/2025 11:47 AM EDT BLOOD COUNT COMPLETE FURPOJCELHiipwmx60/25/2025 11:47 AM EDT Chronic hepatitis C without hepatic coma (CMS & HHS-HCC) Exposure to sexually transmitted disease (STD) Encounter for screening for other viral diseases Screening examination for venereal disease HIV 1/2 AG & AB W/RFLX (4TH GEN)Ylhjdtj1202/21/2025 11:47 AM EDT Chronic hepatitis C without hepatic coma (CMS & HHS-HCC) Exposure to sexually transmitted disease (STD) Encounter for screening for other viral diseases Screening examination for venereal disease HEP C RNA QT, RT PCR W/RFLX ANKITA DSXZBanrwnz24/25/2025 11:47 AM EDT Chronic hepatitis C without hepatic coma (CMS & HHS-HCC) Exposure to sexually transmitted disease (STD) Encounter for screening for other viral diseases Screening examination for venereal disease HEPATIC FUNCTION BIZONFfjjiow40/25/2025 11:47 AM EDT Chronic hepatitis C without hepatic coma (CMS & HHS-HCC) Exposure to sexually transmitted disease (STD) Encounter for screening for other viral diseases Screening examination for venereal disease PROTHROMBIN TOXPRrljhpd98/25/2025 11:47 AM EDT Chronic hepatitis C without hepatic coma (CMS & HHS-HCC) Exposure to sexually transmitted disease (STD) Encounter for screening for other viral diseases Screening examination for venereal disease HEPATITIS PANEL, GENERAL W/RFLX (QPT ONLY)Ubelojv8802/21/2025 11:47 AM EDT Chronic hepatitis C without hepatic coma (CMS & HHS-HCC) Exposure to sexually transmitted disease (STD) Encounter for screening for other viral diseases Screening examination for venereal disease BUN/CREATININE NYOBZSrepcvf14/25/2025 11:47 AM EDT Chronic hepatitis C without hepatic coma (CMS & HHS-HCC) Exposure to sexually transmitted disease (STD) Encounter for screening for other viral diseases Screening examination for venereal disease LIVER FIBROSIS, FIBROTEST-ACTITEST PANEL??Brwybym2102/21/2025 11:47 AM EDT Chronic hepatitis C without hepatic coma Exposure to sexually transmitted disease (STD) Encounter for screening for other viral diseases Screening examination for venereal disease SYPHILIS ANTIBODY CASCADING WGPVMBStusann55/25/2025 11:47 AM EDT Chronic hepatitis C without hepatic coma ([facility] & HHS-HCC) Exposure to sexually transmitted disease (STD) Encounter for screening for other viral diseases Screening examination for venereal disease HEPATITIS??B VIRUS, DNA, QUANTITATIVE PCR W/RFLX HBV KOISRCEAUzazgcb65/25/2025 11:47 AM EDT Chronic hepatitis C without hepatic coma Exposure to sexually transmitted disease (STD) Encounter for screening for other viral diseases Screening examination for venereal disease History of hepatitis B HEPATITIS BE QUIYOMwjfbgu28/25/2025 11:47 AM EDT Chronic hepatitis C without hepatic coma Exposure to sexually transmitted disease (STD) Encounter for screening for other viral diseases Screening examination for venereal disease History of hepatitis B HEPATITIS D VIRUS (HDV) IGM ANTIBODY, TLCZzbonlk90/25/2025 11:47 AM EDT Chronic hepatitis C without hepatic coma Exposure to sexually transmitted disease (STD) Encounter for screening for other viral diseases Screening examination for venereal disease History of hepatitis B LAB SCANNED HJIAMUTN71/25/2025 3:00 AM EDTLAB SCANNED OQIGFEKL12/25/2025 3:00 AM EDTLAB SCANNED EFSUADAP25/25/2025 3:00 AM EDTLAB SCANNED HOAEZVEL10/25/2025 3:00 AM EDTLAB SCANNED HZFSKLLS20/25/2025 3:00 AM EDTLAB SCANNED NAONZPAN99/25/2025 3:00 AM EDTLAB SCANNED IWDIPOKM39/25/2025 3:00 AM EDTLAB SCANNED DOCUMENT 02/21/2025 3:00 AM EDTLAB SCANNED IHUEXLJZ10/25/2025 3:00 AM EDTLAB SCANNED REUAVMUA03/25/2025 3:00 AM EDTLAB SCANNED IBWDJZFL17/25/2025 3:00 AM EDTLAB SCANNED RZCOGOKD39/25/2025 3:00 AM EDTLAB SCANNED WAQOZKNT80/25/2025 3:00 AM EDT LAB SCANNED MFGTWUUN72/25/2025 3:00 AM EDTfrom Last 3 Months Results * MEDICATIONS SCANNED DOCUMENT (02/27/2025 4:34 PM EDT) Only the most recent of2 resultswithin the time period is included. Narrative Authorizing ProviderResult TypeResult StatusProvider OchinSCAN MEDS OTHER ORDERS Final Result * BUN/CREATININE RATIO Routine (02/21/2025 11:47 AM EDT)ComponentValueRef Range Test MethodAnalysis TimePerformed AtPathologist SignatureUREA PXBHAWPM826 - 25 mg/dL02/22/2025 9:22 PM EDTQUEST SpeechCycle-AMBLERCREATININE0.910.60 - 1.29 mg/dL02/22/2025 9:22 PM EDTCareSimply-UXDIKSIVOKFNAI791> OR = 60 mL/min/1.13c64802/22/2025 9:22 PM EDTCareSimplyLAKEWAY HOSPITALBUN/CREATININE RATIOSEE NOTE: (calc)02/22/2025 9:22 PM EDTCareSimplyLAKEWAY HOSPITAL Specimen (Source)Anatomical Location / LateralityCollection Method / Volume Collection TimeReceived TimeBloodBlood / Wdpwvjq9102/21/2025 11:47 AM EDT 02/22/2025 3:11 PM EDT Narrative [facility] [place] - 02/22/2025 9:22 PM EDT Not Reported: BUN and Creatinine are within ?? reference range. . Authorizing ProviderResult TypeResult StatusAmber Glenn CRNPLAB - BLOOD DRAW Final ResultPerforming OrganizationAddressCity/State/ZIP CodePhone [place] [address], [facility]-[address] [address] * (ABNORMAL) HEPATITIS PANEL, GENERAL W/RFLX (QPT ONLY) Routine (02/21/2025 11:47 AM EDT)ComponentValueRef RangeTest MethodAnalysis TimePerformed At [facility] S AB, QLREACTIVE(A)NON-VXYNGPEN21/27/2025 10:10 AM EDT CareSimplyTGAJPGNIPTE-RRDYERTKODBCNJXGSG-BMLNFKTLZOY-PEWWKINI23/27/2025 10:59 AM EDTQUEST SpeechCycleLAKEWAY HOSPITALHB CORE AB, TOTALREACTIVE(A)NON-REACTIVE 02/23/2025 10:59 AM EDTQUEST SpeechCycleLAKEWAY HOSPITALHEPATITIS C ANTIBODY REACTIVE(A)NON-MCBJBRTD37/27/2025 10:59 AM EDTCareSimplyLAKEWAY HOSPITAL HEPATITIS A AB, TOTALREACTIVE(A)NON-FUQXLHAK77/27/2025 11:44 AM Advanced In Vitro Cell TechnologiesLAKEWAY HOSPITALSpecimen (Source)Anatomical Location / Laterality Collection Method / VolumeCollection TimeReceived TimeBloodBlood / Unknown 02/21/2025 11:47 AM EDT02/22/2025 3:11 PM EDT Narrative [facility] - 02/23/2025 11:44 AM EDT . Based on this result, the sample will be tested for HCV RNA by a Nucleic Acid Amplification Test (NAAT) to determine if the patient has a current active infection. . . For additional information, please refer to http://education.Crowdsourcing.org.[employer]/faq/ODE407 (This link is being provided for informational/ educational purposes only.) . . For additional information, please refer to http://AssertID.C[employer].org.[employer]/faq/RDX199 (This link is being provided for informational/ educational purposes only.) . Authorizing ProviderResult TypeResult StatusAmber Glenn HANKINSLAB - BLOOD DRAW Edited Result - FinalPerforming OrganizationAddressCity/State/ZIP CodePhone Number [facility] [address], [facility] [address] * HEPATITIS??B VIRUS, DNA, QUANTITATIVE PCR W/RFLX HBV GENOTYPE Routine (02/21/2025 11:47 AM EDT)ComponentValueRef RangeTest MethodAnalysis Time Performed AtPathologist SignatureHBV DNANOT DETECTEDIU/mL02/27/2025 2:48 AM EDTQUEST DIAGNOSTICS/DENISSE SJCHBV DNANOT DETECTEDLog IU/mL02/27/2025 2:48 AM EDTQUEST DIAGNOSTICS/DENISSE SJCSpecimen (Source)Anatomical Location / LateralityCollection Method / VolumeCollection TimeReceived TimeBloodBlood / Ogrhwcd4402/21/2025 11:47 AM EDT02/22/2025 3:10 PM EDT Narrative [facility] [place] - 02/27/2025 2:57 AM EDT REFERENCE RANGE: NOT DETECTED IU/mL NOT DETECTED LOG IU/mL Authorizing ProviderResult TypeResult StatusAugusta BROWERNPLAB - BLOOD DRAW Final ResultPerforming OrganizationAddressCity/State/ZIP CodePhone Number [facility] [place] [address] [place] [address] [facility] [address] [place] [address] * SYPHILIS ANTIBODY CASCADING REFLEX Routine (02/21/2025 11:47 AM EDT)Component ValueRef RangeTest MethodAnalysis TimePerformed AtPathologist SignatureT. PALLIDUM AB, NDBFHDVGTRNXLXDACZX79/29/2025 4:20 PM EDTQUEST DIAGNOSTICSBristol Regional Medical Center (Source)Anatomical Location / Laterality Collection Method / VolumeCollection TimeReceived TimeBloodBlood / Unknown 02/21/2025 11:47 AM EDT02/22/2025 3:11 PM EDT Narrative [facility] [place] - 02/25/2025 4:27 PM EDT . No [...] BLOOD DRAW Final ResultPerforming OrganizationAddressCity/State/ZIP CodePhone Number [facility], [address] [address], [facility]-[address] [address] * (ABNORMAL) LIVER FIBROSIS, FIBROTEST-ACTITEST PANEL?? Routine (02/21/2025 11:47 AM EDT)ComponentValueRef RangeTest MethodAnalysis TimePerformed At Pathologist SignatureFIBROSIS SCORE0.231 4:47 PM EDTQUEST DIAGNOSTICS/[place] SJCFIBROSIS STAGEF0-F103/01/2025 4:47 PM EDTQUEST [facility]/[place] SJCFIBROSIS INTERPRETATIONSEE NOTE03/01/2025 4:47 PM EDT [facility]/[place] SJCNECROINFLAMMATION ACT SCORE0.101 4:47 PM EDTQUEST [facility]AGNO[facility]/[place] SJCNECROINFLAMMATION ACT TLOQMT088/03/2025 4:47 PM EDTQUEST [facility]AG[facility]/[place] SJCNECROINFLAMMATION INTERPSEE NOTE03/01/2025 4:47 PM EDTQUEST [facility]AGNO[facility]/[place] ZUKWZWQW-0-XXTXKJFWATUWN286935 - 279 mg/dL03/01/2025 4:47 PM EDTQUEST DIAGNO[facility]/[place] FBMOPNERQUEENB6972 - 212 mg/dL03/01/2025 4:47 PM EDTQUEST [facility]/[place] SJCAPOLIPOPROTEIN A1190 (H)94 - 176 mg/dL03/01/2025 4:47 PM EDTQUEST [facility]AG[facility]/[place] SJCTOTAL BILIRUBIN0.50.2 - 1.2 mg/dL03/01/2025 4:47 PM EDTQUEST [facility]AG[facility]/[place] SJC JNK037 - 95 U/L1 4:47 PM EDTQUEST [facility]/[place] UJZIZR876 - 46 U/L1 4:47 PM EDTQUEST [facility]/[place] SJCREFERENCE ID5,760,586 03/01/2025 4:47 PM EDTQUEST [facility]AG[facility]/[place] SJCFOOTNOTESEE NOTE03/01/2025 4:47 PM EDTQUEST [facility]AG[facility]/[place] SJCSpecimen (Source)Anatomical Location / LateralityCollection Method / VolumeCollection TimeReceived TimeBloodBlood / Phphviu8802/21/2025 11:47 AM EDT02/22/2025 12:06 PM EDT Narrative [facility] [place] - 03/01/2025 4:49 PM [...] the preanalytical and analytical conditions recommended by [employer]. The tests have to be deferred for: [...] The performance characteristics have been determined by [employer] [facility]. It has not been cleared or approved by the U.S. Food and Drug Administration. Performance characteristics refer to the analytical performance of the test. . [facility], [employer], the associated logo, [employer] and all associated [employer] mcdaniel are the registered trademarks of [employer]. All third democrat mcdaniel - (R) and (TM) - are the property of their respective owners. (C) 1266-5626 [employer]. All rights reserved. . Authorizing ProviderResult TypeResult StatusAmbvanesa Elizabeth GeoTracNPLAB - BLOOD DRAW Final ResultPerforming OrganizationAddressCity/State/ZIP CodePhone Number [facility] [place] [address] [place] [address] [facility] [address] [place] [address] * HIV 1/2 AG & AB W/RFLX (4TH GEN) Routine (02/21/2025 11:47 AM EDT)Component ValueRef RangeTest MethodAnalysis TimePerformed AtPathologist SignatureHIV Screen FinalHIV CSFCWWQJ35/27/2025 10:59 AM EDTCareSimply-AMBLERHIV AG/AB, 4TH RSWMJM-PVDGKULSSAL-VWQAZRJG24/27/2025 10:59 AM Advanced In Vitro Cell TechnologiesLAKEWAY HOSPITALSpecimen (Source)Anatomical Location / Laterality Collection Method / VolumeCollection TimeReceived TimeBloodBlood / Unknown 02/21/2025 11:47 AM EDT02/22/2025 3:11 PM EDT Narrative [facility] [place] - 02/23/2025 11:00 AM EDT HIV-1 antigen and HIV-1/HIV-2 antibodies were not detected. There is no laboratory evidence of HIV infection. Authorizing ProviderResult TypeResult StatusAmbvanesa CrooksLincoln CRNPLAB - BLOOD DRAW Final ResultPerforming OrganizationAddressCity/State/ZIP CodePhone Number [place]Simply[place] [phone], [facility] [address] * HEPATITIS BE PANEL Routine (02/21/2025 11:47 AM EDT)ComponentValueRef Range Test MethodAnalysis TimePerformed AtPathologist SignatureHEPATITIS BE ANTIBODY Ybmcurfznqc00/29/2025 10:16 AM EDTQUEST DIAGNO[facility]/[place] MAGALIYHEPATITIS BE YJPRFDZLytsheejnjt91/14/2025 8:03 AM EDTQUEST [facility]AG[facility]/[place] Specimen (Source)Anatomical Location / LateralityCollection Method / Volume Collection TimeReceived TimeBloodBlood / Zriubuv3102/21/2025 11:47 AM EDT 02/22/2025 3:11 PM EDT Narrative [facility] - 03/12/2025 8:05 AM EDT . . Reference range: ??Nonreactive . . For additional information, please refer to https://AssertID.[employer]/faq/DJG197 . (This link is being provided for informational/ educational purposes only.) . . . Reference range: ??Nonreactive . . For additional information, please refer to https://AssertID.[employer]/faq/DGZ240 . (This link is being provided for informational/ educational purposes only.) . Authorizing ProviderResult TypeResult StatusAmber Glenn CRNPLAB - BLOOD DRAW Edited Result - FinalPerforming OrganizationAddressCity/State/ZIP CodePhone Number [employer] [phone] [place], [place] , [employer] [facility] HOSPITALBridgestream [address] [place], [place] * HEPATITIS D VIRUS (HDV) IGM ANTIBODY, EIA Routine (02/21/2025 11:47 AM EDT) ComponentValueRef RangeTest MethodAnalysis TimePerformed AtPathologist SignatureHEPATITIS D VIRUS (HDV) IGM ANTIBODY, PIKAMOYRDBD63/01/2025 9:33 PM EDTQUEST DIAGNOSTICS/[place] SJCSpecimen (Source)Anatomical Location / LateralityCollection Method / VolumeCollection TimeReceived TimeBloodBlood / Uwfsgar7102/21/2025 11:47 AM EDT02/22/2025 3:11 PM EDT Narrative [facility] [place] - 02/27/2025 9:34 PM EDT REFERENCE RANGE: [...] analytical performance characteristics have been determined by [employer]. It has not been cleared or approved by FDA. This assay has been validated pursuant to the CLIA regulations and is used for clinical purposes. . Authorizing ProviderResult TypeResult StatusAmb Glenn CRNPLAB - BLOOD DRAW Final ResultPerforming OrganizationAddressCity/State/ZIP CodePhone Number [facility] [place] [address] [place] [address] [facility] [address] [place] [address] * (ABNORMAL) HEP C RNA QT, RT PCR W/RFLX ANKITA LIPA Routine (02/21/2025 11:47 AM EDT)ComponentValueRef RangeTest MethodAnalysis TimePerformed AtPathologist SignatureHCV RNA, QN, PCR1,020,000(H)NOT DETECTED IU/mL02/24/2025 2:14 AM EDT CareSimplyKimAMBLERHCV RNA, QN, PCR6.01(H)NOT DETECTED Log IU/mL 02/24/2025 2:14 AM EDTCareSimplyLAKEWAY HOSPITALSpecimen (Source)Anatomical Location / LateralityCollection Method / VolumeCollection TimeReceived Time BloodBlood / Suoxgzx3402/21/2025 11:47 AM EDT02/22/2025 3:09 PM EDT Sanket [facility] - 02/24/2025 2:17 AM EDT For additional information, please refer to http://education.Crowdsourcing.org.[employer]/faq/JKT70c2 (This link is being provided for informational/ Educational purposes only.) Authorizing ProviderResult TypeResult StatusAmbPomerado HospitalGlenn CRNPLAB - BLOOD DRAW Final ResultPerforming OrganizationAddressCity/State/ZIP CodePhone Number [facility], [address] [address], [facility] [address] * NFCT AGENT GENOTYPE LULU NUCLEIC ACD HEP C VIRUS Routine (02/21/2025 11:47 AM EDT)ComponentValueRef RangeTest MethodAnalysis TimePerformed AtPathologist SignatureHCV RNA GENOTYPE, KDBB5rCko Qouyubmv04/02/2025 2:43 PM EDTCareSimply/[employer] [facility] CENTERpecimen (Source)Anatomical Location / Laterality Collection Method / VolumeCollection TimeReceived Time02/21/2025 11:47 AM EDT 02/26/2025 3:59 AM EDT Narrative [facility] [place] - 02/28/2025 2:44 PM EDT . The methods used in this test are RT-PCR and DNA Sequencing of the 5' UTR and core region of the HCV genome. . For additional information, please refer to http://education.[employer]/faq/HCVGenotyping . (This link is being provided for informational/ educational purposes only.) . This test was developed and its analytical performance characteristics have been determined by [employer]. It has not been cleared or approved by the FDA. The assay has been validated pursuant to the CLIA regulations and is used for clinical purposes. . Authorizing ProviderResult TypeResult StatusAmber Glenn CRNPLAB - BLOOD DRAW Final ResultPerforming OrganizationAddressCity/State/ZIP CodePhone Number [facility] [place] [address] [place], [place] , [facility]/[employer] [place] [address] [place], [place] * PROTHROMBIN TIME Routine (02/21/2025 11:47 AM EDT)ComponentValueRef RangeTest MethodAnalysis TimePerformed AtPathologist SignatureINR1. 5:24 PM EDTQUEST DIAGNOSTICSLAKEWAY HOSPITALPROTHROMBIN TIME10.69.0 - 11.5 sec02/22/2025 5:24 PM EDTQUEST DIAGNOSTICSLAKEWAY HOSPITALSpecimen (Source)Anatomical Location / LateralityCollection Method / VolumeCollection TimeReceived TimeBloodBlood / Gtxgdvr5002/21/2025 11:47 AM EDT09/ 3:11 PM EDT Narrative [facility] - 02/22/2025 5:25 PM EDT Reference Range 0.9-1.1 Moderate-intensity Warfarin Therapy 2.0-3.0 Higher-intensity Warfarin Therapy ?? 3.0-4.0 . For additional information, please refer to http://AssertID.[employer]/faq/JKK319 (This link is being provided for informational/ educational purposes only.) Authorizing ProviderResult TypeResult StatusAmber Glenn BROWERNPLAB - BLOOD DRAW Final ResultPerforming OrganizationAddressCity/State/ZIP CodePhone Number [facility], [address] [address], [facility] [place]ICSAP[place] [address] * BLOOD COUNT COMPLETE AUTOMATED Routine (02/21/2025 11:47 AM EDT)ComponentValue Ref RangeTest MethodAnalysis TimePerformed AtPathologist SignatureWBC8.13.8 - 10.8 Thousand/uL02/22/2025 4:08 PM EDTQUEST DIAGNOSTICS-AMBLERRBC5.274.20 - 5.80 Million/uL02/22/2025 4:08 PM EDTQUEST DIAGNOSTICSLAKEWAY HOSPITALHEMOGLOBIN 15.213.2 - 17.1 g/dL02/22/2025 4:08 PM EDTQUEST DIAGNOSTICSLAKEWAY HOSPITAL LZHFKJXPNK05.438.5 - 50.0 %02/22/2025 4:08 PM EDTQUEST DIAGNOSTICSLAKEWAY HOSPITAL MCV88.080.0 - 100.0 fL02/22/2025 4:08 PM EDTQUEST DIAGNOSTICSLAKEWAY HOSPITALMCH 28.827.0 - 33.0 pg02/22/2025 4:08 PM EDTQUEST DIAGNOSTICSLAKEWAY HOSPITALEAIRCVDUUACJVS88.8 32.0 - 36.0 g/dL02/22/2025 4:08 PM EDTQUEST DIAGNOSTICSLAKEWAY HOSPITALJWXTQNVIUTFEC03.511.0 - 15.0 %02/22/2025 4:08 PM EDTQUEST DIAGNOSTICS-AMBLERPLATELET VMFRW127994 - 400 Thousand/uL02/22/2025 4:08 PM EDTQUEST DIAGNOSTICS-OSLEBBVWFOREG68.47.5 - 12.5 fL02/22/2025 4:08 PM EDTQUEST DIAGNOSTICS-AMBLERSpecimen (Source) Anatomical Location / LateralityCollection Method / VolumeCollection Time Received TimeBloodBlood / Dfztwxx1802/21/2025 11:47 AM EDT02/22/2025 3:11 PM EDT Narrative [facility] - 02/22/2025 4:09 PM EDT For adults, a slight decrease in the calculated MCHC value (in the range of 30 to 32 g/dL) is most likely not clinically significant; however, it should be interpreted with caution in correlation with other red cell parameters and the patient's clinical condition. Authorizing ProviderResult TypeResult StatusAmber Glenn CRNPLAB - BLOOD DRAW Final ResultPerforming OrganizationAddressCity/State/ZIP CodePhone Number [facility] [address], [facility] [address] * HEPATIC FUNCTION PANEL Routine (02/21/2025 11:47 AM EDT)ComponentValueRef RangeTest MethodAnalysis TimePerformed AtPathologist SignaturePROTEIN, TOTAL 7.56.1 - 8.1 g/dL02/22/2025 9:22 PM EDTWevebob DIAGNOSTICS-AMBLERALBUMIN4.6 3.6 - 5.1 g/dL02/22/2025 9:22 PM EDTWevebob DIAGNOSTICS-AMBLERGLOBULIN, CALCULATED2.91.9 - 3.7 g/dL (calc)02/22/2025 9:22 PM EDTWevebob DIAGNOSTICS-AMBLERA/G RATIO1.61.0 - 2.5 (calc)02/22/2025 9:22 PM EDTWevebob DIAGNOSTICS-AMBLERBILIRUBIN, TOTAL0.50.2 - 1.2 mg/dL02/22/2025 9:22 PM EDT [facility]-AMBLERBILIRUBIN, DIRECT0.10.0 - 0.2 mg/dL02/22/2025 9:22 PM EDTQUEST DIAGNOSTICS-AMBLERBILIRUBIN, INDIRECT0.40.2 - 1.2 mg/dL (calc) 02/22/2025 9:22 PM EDTQUEST DIAGNOSTICS-AMBLERALKALINE UYNRDSZWVXJ2515 - 130 U/L02/22/2025 9:22 PM EDTWe[facility] DIAG[facility]STICS-SKTOQRQDIAXCL7737 - 40 U/L 02/22/2025 9:22 PM EDTQUEST DIAGNOSTICS-MUSZFMRBPTSXU080 - 46 U/L02/22/2025 9:22 PM EDTQUEST DIAGNOSTICS-AMBLERSpecimen (Source)Anatomical Location / LateralityCollection Method / VolumeCollection TimeReceived TimeBloodBlood / Sztczsn2902/21/2025 11:47 AM EDT02/22/2025 3:11 PM EDT Narrative Authorizing ProviderResult TypeResult StatusAmbvanesa Elizabeth CRNPLAB - BLOOD DRAW Final ResultPerforming OrganizationAddressCity/State/ZIP CodePhone Number [facility], [address] [address], [facility] [address] * LAB SCANNED DOCUMENT (02/21/2025 3:00 AM EDT) Only the most recent of14 resultswithin the time period is included. Specimen (Source)Anatomical Location / LateralityCollection Method / Volume Collection TimeReceived Time02/21/2025 3:00 AM EDT Narrative Authorizing ProviderResult TypeResult StatusAmber Glenn CRNPSCAN LABFinal Result from Last 3 Months Insurance
--- OUTSIDE RECORDS SUMMARY | 2025-03-26 18:38 | XMS_ITS | Clinical Summary ---
[facility] Organization [facility] Address [id number] [address] [id number] Care Team Providers Care Grand Scribe Name Role Phone No Pcp, No Pcp Primary Care Provider Unavailabl e Allergies Active AllergyReactionsCriticalityNoted KpoxJmspjaemCnnzvnfwcji17/08/2021 Medications MedicationSigDispense QuantityRefillsLast FilledStart DateEnd DateStatus tamsulosin (FLOMAX) 0.4 mg capsule Take 1 capsule (0.4 mg total) by mouth daily. 14 capsule 12/04/2020ctive Social History Tobacco UseTypesPacks/DayYears UsedDateSmoking Tobacco: Every DayCigarettes Smokeless Tobacco: NeverChildcareAnswerDate AqcygaqsKqtewmoczYbzvnmk74/12/2019 EmploymentAnswerDate QnplcsmqAxqwnrgcxkDfktpqv27/12/2019Sex and Gender InformationValueDate RecordedSex Assigned at BirthNot on fileLegal SexMale 08/09/2015 11:33 PM ESTGender IdentityNot on fileSexual OrientationNot on file Last Filed Vital Signs Vital SignReadingTime TakenCommentsBlood Bqozeqnr307/8312/04/2020 9:23 PM EDT Bqwhd747512/04/2020 9:40 PM YQNKavwfbxmmex62.4 ??C (99.3 ??F)12/04/2020 8:55 PM EDTRespiratory Qxtb423012/04/2020 9:40 PM EDTOxygen Xasarywbld09%12/04/2020 9:40 PM EDTInhaled Oxygen Concentration--Fdjdvb73 kg (130 lb)12/04/2020 8:55 PM EDT Iclblb299.6 cm (5' 4 )12/04/2020 8:55 PM EDTBody Mass Index22.31012/04/2020 8:55 PM EDT Plan of Treatment Not on file Medical Devices Not on file Insurance Care Teams Team MemberRelationshipSpecialtyStart DateEnd Date No Pcp, [place] [address] [facility]
--- NOTE | 2025-03-26 18:50 | PC.NURSE ---
Pt seen in ER yesterday given a work note for 1 day Returns today wanting his work note extended as he did not get his medications until later today This was cleared with Dr. Miranda to give patient a work note to get him out of work tomorrow as well
== END 2025-03-26 18:51 | disposition left against medical advice (07) ==
PROVIDERS: Emergency Provider Emergency Medicine
DX: Z53.21 Procedure and treatment not carried out due to patient leaving prior to being seen by health care provider (principal)